=== PATIENT | female | born 1995 | race Caucasian/White ===

== ENCOUNTER 2019-06-20 12:19 | Outpatient (CLI) | payer MEDICAID ==
--- NOTE | 2019-06-20 12:19 | NUR ---
ANTONETTE ROSE presented to unit via ambulation from Dr. Patel , with c/o FALL. ANTONETTE ROSE weighed, gowned, voided, and to bed. EFHM and TOCO applied, VS taken. ANTONETTE ROSE oriented to bed controls, call light, TV, heat, and A/C controls.
[2019-06-20 13:00] VITALS: BP 111/69
--- NOTE | 2019-06-20 14:29 | NUR ---
Dr. Sanders contacted d/t pt requesting to eat. Regular diet order rec'd. [place] tray and saltine crackers provided to pt.
--- NOTE | 2019-06-20 16:35 | NUR ---
Dr. Sanders contacted and notified of R, ctx pattern ( sent pt to hospital from office so already knows history of fall). also notified pt c/o feeling "wet down there". Nitrazine performed per this RN and found to be negative. Discharge orders rec'd.
--- NOTE | 2019-06-20 16:50 | NUR ---
Discharge instructions given to pt per Iesha Jasmine RN and copy provided to pt. Pt denies questions or concerns and signs to verify. Pt ambulates off unit to private vehicle with all personal belongings. No s/s of distress noted.
--- NOTE | 2019-06-21 08:30 | Physician Query-Final Dx ---
MILADYS ROSA 06/21/19 0830: Clinic Account Progress/Dx Physician Query: Please give diagnosis Please include # weeks gestation Date of Service Jun 20, 2019 at 12:19 SONIA BLEVINS MD 06/22/19 1107: Clinic Account Progress/Dx DIAGNOSIS: Diagnosis 33 weeks gestation Fall, normal and uterine activity monitoring MILADYS ROSA Jun 21, 2019 08:30 SONIA BLEVINS MD Jun 22, 2019 11:07
== END 2019-06-20 16:50 | disposition home or self-care (01) ==
LOC: WSo 12:19 → LDRP 12:45 → WSo 16:50
PROVIDERS: ATTEND Family Medicine
DX: Z34.83 Encounter for supervision of other normal pregnancy, third trimester (principal); W19.XXXA Unspecified fall, initial encounter; Z3A.33 33 weeks gestation of pregnancy
CPT/HCPCS: 59025

== ENCOUNTER 2019-06-29 12:38 | Outpatient (CLI) | payer MEDICAID ==
[~2019-06-29] VITALS: Ht 170 cm; Wt 81.3 kg
--- NOTE | 2019-06-29 12:50 | NUR ---
ANTONETTE ROSE presented to unit via from ED, accompanied by self , with c/o CONTRACTIONS. ANTONETTE ROSE weighed, gowned, voided, and to bed. EFHM and TOCO applied, VS taken. ANTONETTE ROSE oriented to bed controls, call light, TV, heat, and A/C controls.
[2019-06-29 13:08] LABS: BILIRUBIN,URINE NEGATIVE (NEGATIVE); CLARITY,URINE CLEAR; COLOR,URINE YELLOW; GLUCOSE, URINE (UA) NEGATIVE (NEGATIVE); KETONES,URINE NEGATIVE (NEGATIVE); LEUKOCYTE ESTERASE ,URINE TRACE (NEGATIVE); NITRITE,URINE NEGATIVE (NEGATIVE); PH,URINE 7.5 (5-9); PROTEIN,URINE NEGATIVE (NEGATIVE)
[2019-06-29 13:16] LABS: BACTERIA,URINE FEW /HPF; WBC,URINE RARE /HPF
[2019-06-29 13:50] VITALS: BP 109/67
--- NOTE | 2019-06-29 14:10 | NUR ---
Rates pain 10 and wants to eat and drink. States she was in [place] yesterday with same complaints of contractions and legs hurting. No dilated yesterday. 1430 After eating pt states she better and wanting when she can go home. States boyfriend is in [place], [place] and he will come to get her but [place] has a curfew of 4pm. No one in or out of city due to Covid 19. Gave Vistaril and Tylenol as ordered. Will follow up with routine appointment either tomorrow or the . Having uterine irritability. FHR 130's with frequent movement and pt movement.
[2019-06-29] MEDS ORDERED: hydrOXYzine (VISTARIL/ATARAX) 25 MG capsule/tablet PO NR (14:30)
[2019-06-29] MEDS ORDERED: ACETAMINOPHEN 325 MG TABLET ONE (14:30)
[2019-06-29] MEDS ORDERED: ACETAMINOPHEN 325 MG TABLET PO NR (14:30)
[2019-06-29] MEDS ORDERED: CARI1.5C PO (14:57)
--- NOTE | 2019-06-29 15:00 | NUR ---
Dismiss to home. Ambulated to exit.
--- NOTE | 2019-06-30 08:44 | Physician Query-Final Dx ---
Clinic Account Progress/Dx Physician Query: Please give diagnosis Please include # weeks gestation Date of Service Jun 29, 2019 at 12:38 MILADYS ROSA Jun 30, 2019 08:44
== END 2019-06-29 15:30 ==
LOC: WSo 12:38 → LDRP 12:39 → WSo 15:30
PROVIDERS: ATTEND Family Medicine
DX: O62.9 Abnormality of forces of labor, unspecified (principal); Z3A.35 35 weeks gestation of pregnancy
CPT/HCPCS: 81000; 99213

== ENCOUNTER 2019-07-24 22:21 | Inpatient (IN) | payer MEDICAID ==
[~2019-07-24] VITALS: Ht 170.2 cm; Wt 82.1 kg
[~2019-07-24 22:21] MED LIST: CARI1.5C PO
--- NOTE | 2019-07-24 22:25 | NUR ---
ANTONETTE ROSE presented to unit via w/c from home/ED, accompanied by SO, with c/o LABOR, SROM. ANTONETTE ROSE weighed, gowned, voided, and to bed. EFHM and TOCO applied, VS taken. ANTONETTE ROSE oriented to bed controls, call light, TV, heat, and A/C controls.
[2019-07-24 22:37] VITALS: BP 127/86
[2019-07-24] MEDS ORDERED: LACTATED RINGERS 1,000 ML IV ONE (22:40)
[2019-07-24 22:45] VITALS: BP 127/86
[2019-07-24] MEDS ORDERED: CITRIC ACID/SOB CIT (BICITRA) 30 ML UDC ONE (22:50)
[2019-07-24] MEDS ORDERED: METOCLOPRAMIDE INJ 10 MG/2 ML (REGLAN) ONE (22:50)
[2019-07-24] MEDS ORDERED: FAMOTIDINE 20MG/2ML IV (PEPCID) ONE (22:51)
[2019-07-24] MEDS ORDERED: LACTATED RINGERS 1,000 ML IV PRN (22:58)
[2019-07-24] MEDS ORDERED: METOCLOPRAMIDE INJ 10 MG/2 ML (REGLAN) IV ONE (23:00)
[2019-07-24] MEDS ORDERED: FAMOTIDINE 20MG/2ML IV (PEPCID) IV ONE (23:00)
[2019-07-24] MEDS ORDERED: CITRIC ACID/SOB CIT (BICITRA) 30 ML UDC PO ONE (23:00)
[2019-07-24] MEDS: LACTATED RINGERS 1,000 ML IV PRN ×2 (23:04→23:52)
[2019-07-24 23:08] LABS: BASOPHILS % (AUTO) 0 % (0-10); EOSINOPHILS % (AUTO) 1 % (0-10); HEMATOCRIT 33 % (35-52); HEMOGLOBIN 10.7 G/DL (11.5-16.0); LYMPHOCYTES # (AUTO) 1.9 X 10^3 (1.0-4.0); LYMPHOCYTES % (AUTO) 27 % (12-44); MEAN CORPUSCULAR HEMOGLOBIN 28 PG (25-34); MEAN CORPUSCULAR HGB CONC 32 G/DL (32-36); MEAN CORPUSCULAR VOLUME 86 FL (80-99); MEAN PLATELET VOLUME 9.6 FL (7.4-10.4); MONOCYTES # (AUTO) 0.7 X 10^3 (0.0-1.0); MONOCYTES % (AUTO) 10 % (0-12); NEUTROPHILS # (AUTO) 4.6 X 10^3 (1.8-7.8); NEUTROPHILS % (AUTO) 63 % (42-75); PLATELET COUNT 275 10^3/uL (130-400); RED CELL DISTRIBUTION WIDTH 14.1 % (10.0-14.5); WHITE BLOOD COUNT 7.2 10^3/uL (4.3-11.0)
[2019-07-24] MEDS ORDERED: ceFAZolin 2 GM IV Premixed 50 ML ONE (23:16)
--- NOTE | 2019-07-24 23:18 | Progress Note-Pre Operative ---
Pre-Operative Progress Note H&P Reviewed The H&P was reviewed, patient examined and no changes noted. I was called to see Ms. Rodriguez secondary to having SROM at 38 3/7 weeks with an active HSV lesion in her vaginal area. This was discussed with Ms. Espinoza and her significant other about proceeding with an immediate . The procedure and its associated risks were discussed. All questions were answered. Informed consent was obtained. Date Seen by Provider: Jul 24, 2019 Time Seen by Provider: 23:00 Date H&P Reviewed: Jul 24, 2019 Time H&P Reviewed: 23:05 Pre-Operative Diagnosis: Intrauterine at 38 3/7 weeks 2. SROM 3. Active HSV (vulvar) AUBREY HAGAN DO Jul 24, 2019 23:18
[2019-07-24] MEDS ORDERED: OXYTOCIN PRE-MIX DRIP 1,000 ML IV ONE (23:27)
[2019-07-24] MEDS ORDERED: fentaNYL INJECTION 100 MCG/2 ML AMP ONE (23:28)
[2019-07-24] MEDS ORDERED: ceFAZolin 2 GM IV Premixed 50 ML IV ONE (23:30)
[2019-07-24] MEDS ORDERED: ACYC400T (23:31)
--- NOTE | 2019-07-24 23:31 | History & Physical-OB ---
OB - Chief Complaint & HPI Date/Time Date of Admission: Date of Admission: Date seen by a Provider: Jul 24, 2019 Time Seen by a Provider: 23:15 Chief Complaint/History OB-Reason for Admission/Chief: Rupture of Membranes Hx : 3 Hx Para: 2 Expected Date of Delivery: Aug 04, 2019 Gestational Age in Weeks: 38 Gestational Age in Days: 3 Indication for : other (active herpes lesion) History of Labs A neg, antibody neg, RI. HIV/HepB/RPR NR. GC/chlamydia neg. 1 hour glucola neg. GBS neg. Allergies and Home Medications Allergies Coded Allergies: No Known Drug Allergies (Unverified , 06/20/19) Home Medications Cariprazine Hydrochloride 1.5 Mg Capsule, 1.5 MG PO DAILY, (Reported) Patient Home Medication List Home Medication List Reviewed: Yes (Has not been taking acyclovir regularly) OB - History Hx of Present Care: Yes Ultrasounds: Normal mid trimester US Obstetrical Complications: None Medical Complications: Genitourinary (History of herpes), Psychiatric (schizophrenia, on Vraylar) Information Induced Hypertension: No Maternal Gestational Diabetes: No Hemorrhage: No Obstetrical History Hx : 3 Hx Para: 2 Hx # Term Pregnancies: 2 Hx # Pregnancies: 0 Number of Living Children: 2 Hx Termination: No Hx Multiple Gestation: No Hx Ectopic : No Hx Stillbirth: No Hx Complication: No Hx Induced Hypertens: No Hx Maternal Gestational Diabet: No Hx Hemorrhage: No Delivery History Hx Dystocia: No Hx Forceps Assisted Delivery: No Hx Vacuum Extraction Assisted: No Hx Placenta Abnormality: No Hx Distress: No Hx Large For Gestational Age I: No Hx Small for Gestational Age I: No Hx Section: No Hx Vaginal Delivery Post C-Sec: No Hx Blood Disorders: No Adverse Rxn to Tranfusion: No Patient Past Medical History PMHx: Schizophrenia Cerebral palsy Depression Genital herpes SurgHx: Left finger Social History/Family History HIV/AIDS: No Recent Infectious Disease Expo: No Sexually Transmitted Disease: Yes (HSV) Alcohol Use: Denies Use Recreational Drug Use: No Smoking Cessation: Never smoker 2nd Hand Smoke Exposure: No Immunizations Tetanus Booster (TDap): Less than 5yrs Rubella: immune RPR/VDRL: Negative GBS Status: Negative HBsAG: Negative OB - Admission Exam Physical Exam HEENT: NCAT Abdomen: Gravid Cervical Dilatation: 2cm (per nurse exam. I confirmed finding of blister-like HSV lesion at anterior labia on the left) Labs Laboratory Tests Test 07/24/19 23:00 Range/Units White Blood Count 7.2 4.3-11.0 10^3/uL Red Blood Count 3.84 L 4.35-5.85 10^6/uL Hemoglobin 10.7 L 11.5-16.0 G/DL Hematocrit 33 L 35-52 % Mean Corpuscular Volume 86 80-99 FL Mean Corpuscular Hemoglobin 28 25-34 PG Mean Corpuscular Hemoglobin Concent 32 32-36 G/DL Red Cell Distribution Width 14.1 10.0-14.5 % Platelet Count 275 130-400 10^3/uL Mean Platelet Volume 9.6 7.4-10.4 FL Neutrophils (%) (Auto) 63 42-75 % Lymphocytes (%) (Auto) 27 12-44 % Monocytes (%) (Auto) 10 0-12 % Eosinophils (%) (Auto) 1 0-10 % Basophils (%) (Auto) 0 0-10 % Neutrophils # (Auto) 4.6 1.8-7.8 X 10^3 Lymphocytes # (Auto) 1.9 1.0-4.0 X 10^3 Monocytes # (Auto) 0.7 0.0-1.0 X 10^3 Eosinophils # (Auto) 0.0 0.0-0.3 10^3/uL Basophils # (Auto) 0.0 0.0-0.1 10^3/uL OB - Assessment/Plan/Diagnosis Assessment Assessment: rupture of membranes, other (Active herpes lesion) Admission Dx Term at 38 weeks Spontaneous rupture of membranes Genital herpes lesion A negative blood type Rubella immune GBS neg. Admission Status: Inpatient Order (span 2 midnights) Reason for Inpatient Admission: Delivery and course Plan Plan: Section SONIA BLEVINS MD Jul 24, 2019 23:31
--- OUTSIDE RECORDS SUMMARY | 2019-07-24 23:31 | XMS REPORT ---
Author Author Alla BLANDON Organization [facility] Address [address] [place] [address] Care Team Providers Care Meat Carver Name Role Phone SUZETTE BLANDON Unavailable PROBLEMS Type Condition ICD9-CM Code [id number] Code Onset Dates Condition S tatus SNOMED Code Problem Mild intellectual disability F70 A ctive [id number] Problem Schizoaffective disorder, unspecified type F25.9 Active [id number] ALLERGIES No Information ENCOUNTERS Encounter Location Date Diagnosis [facility] [address] [facility] [id number] [address] [place] [phone] Dec, [facility] [address] [facility] [id number] [address] [place] [phone] Oct, [facility] [address] [facility] [id number] [address] [place] [phone] Oct, Schizoaffective disorder, un specified type F25.9 and Mild intellectual disability F70 [facility] [address] [facility] [id number] [address] [place] [phone] 10 Aug, 2017 Schizoaffective disorder, un specified type F25.9 IMMUNIZATIONS No Known Immunizations SOCIAL HISTORY Never Assessed REASON FOR VISIT intake PLAN OF CARE Activity Details Follow Up Scheduled with Dr. Barr. Reason: VITAL SIGNS MEDICATIONS Unknown Medications RESULTS No Results PROCEDURES Procedure Date Ordered Result Body Site Psych diagnostic evaluation, new patient August 19, 2017 INSTRUCTIONS MEDICATIONS ADMINISTERED No Known Medications MEDICAL (GENERAL) HISTORY Type Description Date Medical History cerebral palsy Surgical History Left finger when she was 8 Hospitalization History [place] x 1 week 04/2017
--- OUTSIDE RECORDS SUMMARY | 2019-07-24 23:31 | XMS REPORT ---
Author Author Alla JACKSON Organization [facility] Address [address] [place] [address] Care Team Providers Care Display Fabricator Name Role Phone OJ JACKSON Unavailable PROBLEMS Type Condition ICD9-CM Code [id number] Code Onset Dates Condition S tatus SNOMED Code Problem Mild intellectual disability F70 A ctive [id number] Problem Schizoaffective disorder, unspecified type F25.9 Active [id number] ALLERGIES No Information ENCOUNTERS Encounter Location Date Diagnosis [facility] [address] [facility] [id number] [address] [place] [phone] Dec, [facility] [address] [facility] [id number] [address] [place] [phone] Oct, [facility] [address] [facility] [id number] [address] [place] [phone] Oct, Schizoaffective disorder, un specified type F25.9 and Mild intellectual disability F70 [facility] [address] [facility] [id number] [address] [place] [phone] August, Schizoaffective disorder, un specified type F25.9 IMMUNIZATIONS No Known Immunizations SOCIAL HISTORY Never Assessed REASON FOR VISIT Requests return call PLAN OF CARE VITAL SIGNS MEDICATIONS Unknown Medications RESULTS No Results PROCEDURES No Known procedures INSTRUCTIONS MEDICATIONS ADMINISTERED No Known Medications MEDICAL (GENERAL) HISTORY Type Description Date Medical History cerebral palsy Surgical History Left finger when she was 8 Hospitalization History [place] x 1 week 04/2017
--- OUTSIDE RECORDS SUMMARY | 2019-07-24 23:31 | XMS REPORT | Continuity of Care Document ---
Author Organization Unknown Address Unknown Phone Unavailable Allergies Active Description Code Type Severity Reaction Onset Reported/Identified Relationship to Patient Clinical Status Yes No Known Drug Allergies [id number] Drug Allergy Unknown N/A 06/20/2019 Medications There is no data. Problems Date Dx Coded Attending Type Code Diagnosis Diagnosed By 06/23/2019 KAMERON LYLE DO, Ot W19.XX XA UNSPECIFIED FALL, INITIAL ENCOUNTER 06/23/2019 KAMERON LYLE DO, Ot Z34.83 ENCOUNTER FOR SUPRVSN OF NORMAL PREGNANC 06/23/2019 KAMERON LYLE DO, Ot Z3A.33 33 WEEKS GESTATION OF 06/29/2019 FRANCISCA CHRISTIAN MD Ot O62.9 ABNORMALITY OF FORCES OF LABOR, UNSPECIF 06/29/2019 FRANCISCA CHRISTIAN MD Ot Z3A.3 5 35 WEEKS GESTATION OF 07/05/2019 FRANCISCA CHRISTIAN MD Ot O62.9 ABNORMALITY OF FORCES OF LABOR, UNSPECIF 07/05/2019 FRANCISCA CHRISTIAN MD Ot Z3A.3 5 35 WEEKS GESTATION OF 07/05/2019 FRANCISCA CHRISTIAN MD Ot O62.9 ABNORMALITY OF FORCES OF LABOR, UNSPECIF 07/05/2019 FRANCISCA CHRISTIAN MD Ot Z3A.3 5 35 WEEKS GESTATION OF Procedures There is no data. Results Test Result Range SUREPATH PAP RFX HPV mRNA E6/E7 - 17:40 CLINICAL INFORMATION: NRG LMP: OCTOBER 2018 NRG PREV. PAP: NORMAL NRG PREV. BX: NRG SOURCE: Cervix NRG STATEMENT OF ADEQUACY: NRG INTERPRETATION/RESULT: NRG SEPARATOR OPERATOR: NRG REVIEW SEPARATOR OPERATOR: NRG COMMENT NRG CULTURE, GENITAL - 01/11/19 17:41 CULTURE, GENITAL SEE NOTE NRG CMP - 03/24/19 10:23 GLUCOSE 75 mg/dL 65-99 UREA NITROGEN (BUN) 9 mg/dL 7-25 CREATININE 0.53 mg/dL 0.50-1.10 eGFR NON-AFR. CAMBODIAN 134 mL/min/1.73m2 > OR = 60 eGFR 155 mL/min/1.73m2 > OR = 60 BUN/CREATININE RATIO NOT APPLICABLE (calc) 6-22 SODIUM 140 mmol/L 135-146 POTASSIUM 5.2 mmol/L 3.5-5.3 CHLORIDE 107 mmol/L 98-110 CARBON DIOXIDE 27 mmol/L 20-32 CALCIUM 9.4 mg/dL 8.6-10.2 PROTEIN, TOTAL 6.2 g/dL 6.1-8.1 ALBUMIN 3.6 g/dL 3.6-5.1 GLOBULIN 2.6 g/dL (calc) 1.9-3.7 ALBUMIN/GLOBULIN RATIO 1.4 (calc) 1.0-2. 5 BILIRUBIN, TOTAL 0.3 mg/dL 0.2-1.2 ALKALINE PHOSPHATASE 53 U/L 33-115 AST 17 U/L 10-30 ALT 24 U/L 6-29 SYPHILIS (RPR W/ REFLEX CONFIRMATION) - 05/10/19 14:41 RPR (DX) W/REFL TITER AND CONFIRMATORY TESTING NON-REACTIVE NON-REACTIVE Complete urinalysis with reflex to cultu re - 06/29/19 12:50 Urine color determination YELLOW NRG Urine clarity determination CLEAR NR G Urine pH measurement by test strip 7.5 5-9 Specific gravity of urine by test strip 1.015 1.016-1.022 Urine protein assay by test strip, semi-quantitative NEGATIVE NEGATIVE Urine glucose detection by automated test strip NE GATIVE NEGATIVE Erythrocytes detection in urine sediment by light micr oscopy 2+ NEGATIVE Urine ketones detection by automated test strip NE GATIVE NEGATIVE Urine nitrite detection by test strip NEGATIVE NEGATIVE Urine total bilirubin detection by test strip NEGA TIVE NEGATIVE Urine urobilinogen measurement by automated test strip (mass/volume) 1.0 mg/dL < = 1.0 Urine leukocyte esterase detection by dipstick TRA CE NEGATIVE Automated urine sediment erythrocyte cou nt by microscopy (number/high power field) [HPF] NRG Automated urine sediment leukocyte count by microscopy (number/high power field) RARE NRG Bacteria detection in urine sediment by light microsco py FEW NRG Squamous epithelial cells detection in u rine sediment by light microscopy 5-10 NRG Crystals detection in urine sediment by light microsco py NONE NRG Casts detection in urine sediment by light microscopy NONE NRG Mucus detection in urine sediment by light microscopy SMALL NRG Complete urinalysis with reflex to culture NO NRG CULTURE, URINE - 06/30/19 15:17 CULTURE, URINE, ROUTINE SEE NOTE NRG CULTURE, GROUP B STREP (VAGINAL) - 07/11 15:20 STREPTOCOCCUS, GROUP B CULTURE SEE NOTE NRG Complete blood count (CBC) with automate d white blood cell (WBC) differential - 07/24/19 23:00 Blood leukocytes automated count (number/volume) 7.2 10*3/uL 4.3-11.0 Blood erythrocytes automated count (number/volume) 3.84 10*6/uL 4.35-5.85 Venous blood hemoglobin measurement (mass/volume) 10.7 g/dL 11.5-16.0 Blood hematocrit (volume fraction) 33 % 35-52 Automated erythrocyte mean corpuscular volume 86 [ foz_us] 80-99 Automated erythrocyte mean corpuscular h emoglobin (mass per erythrocyte) 28 pg 25-34 Automated erythrocyte mean corpuscular h emoglobin concentration measurement (mass/volume) 32 g/dL 32-36 Automated erythrocyte distribution width ratio 14. 1 % 10.0- 14.5 Automated blood platelet count (count/volume) 275 10*3/uL 130-400 Automated blood platelet mean volume measurement 9.6 [foz_us] 7.4-10.4 Automated blood neutrophils/100 leukocytes 63 % 42-75 Automated blood lymphocytes/100 leukocytes 27 % 12-44 Blood monocytes/100 leukocytes 10 % 0-12 Automated blood eosinophils/100 leukocytes 1 % 0-10 Automated blood basophils/100 leukocytes 0 % 0-10 Blood neutrophils automated count (number/volume) 4.6 10*3 1.8-7.8 Blood lymphocytes automated count (number/volume) 1.9 10*3 1.0-4.0 Blood monocytes automated count (number/volume) 0. 7 10*3 0.0-1.0 Automated eosinophil count 0.0 10*3/uL 0 .0-0.3 Automated blood basophil count (count/volume) 0.0 10*3/uL 0.0-0.1 Encounters ACCT No. Visit Date/Time Discharge Status Pt. Type Provider Facility Loc./Unit Complaint [id number] 2019 16:00:00 2019 23:59: 59 CLS Outpatient FELICITY LINDA[facility] [place] [id number] 07/12/2019 13:20:00 Document Registration [id number] 06/30/2019 14:40:00 Document Registration [id number] 05/10/2019 14:00:00 Document Registration [id number] 03/24/2019 10:20:00 Document Registration [id number] 01/11/2019 14:15:00 Document Registration [id number] 03/22/2019 13:21:00 ACT Unknown [id number] 06/29/2019 12:38:00 15:30:00 DIS Outpatient GINO LINDA, [facility] CONTR[facility] [id number] 06/20/2019 12:19:00 16:50:00 DIS Outpatient [facility] [id number] 07/24/2019 23:12:00 Document Registration
--- OUTSIDE RECORDS SUMMARY | 2019-07-24 23:31 | XMS REPORT ---
Author Author Alla JACKSON Organization [facility] Address [address] [place] [address] Care Team Providers Care Taco Maker Name Role Phone OJ JACKSON Unavailable PROBLEMS Type Condition ICD9-CM Code [id number] Code Onset Dates Condition S tatus SNOMED Code Problem Mild intellectual disability F70 A ctive [id number] Problem Schizoaffective disorder, unspecified type F25.9 Active [id number] ALLERGIES No Known Allergies ENCOUNTERS Encounter Location Date Diagnosis [facility] [address] [facility] [id number] [address] [place] [phone] Dec, [facility] [address] [facility] [id number] [address] [place] [phone] Oct, [facility] [address] [facility] [id number] [address] [place] [phone] Oct, Schizoaffective disorder, un specified type F25.9 and Mild intellectual disability F70 [facility] [address] [facility] [id number] [address] [place] [phone] August, Schizoaffective disorder, un specified type F25.9 IMMUNIZATIONS No Known Immunizations SOCIAL HISTORY Never Assessed REASON FOR VISIT charlie Nowak MA PLAN OF CARE Activity Details Follow Up prn Reason: f/u VITAL SIGNS Height 57 in 2017-10-11 Weight 143.4 lbs 2017-10-11 Heart Rate 72 bpm 2017-10-11 Respiratory Rate 20 2017-10-11 Oximetry on room air:99 % 2017-10-11 BMI 31.03 kg/m2 2017-10-11 Blood pressure systolic 118 mmHg 2017-10-11 Blood pressure diastolic 72 mmHg 2017-10-11 MEDICATIONS Medication Instructions Dosage Frequency Start Date End Date Duration S tatus Vraylar 3 MG Orally Once a day 1 capsule 24h 30 days Active RESULTS No Results PROCEDURES No Known procedures INSTRUCTIONS MEDICATIONS ADMINISTERED No Known Medications MEDICAL (GENERAL) HISTORY Type Description Date Medical History cerebral palsy Surgical History Left finger when she was 8 Hospitalization History [place] x 1 week 04/2017
[2019-07-24] MEDS ORDERED: DEXAMETHASONE 10 MG/ML (DECADRON) 1 ML VIAL ONE (23:54)
[2019-07-24] MEDS ORDERED: ONDANSETRON 4 MG/2 ML (SDV) Z0FRAN ONE (23:54)
[2019-07-24] MEDS ORDERED: BUPIVACAINE 0.5% 30 ML (SENSORCAINE) VIAL ONE (23:54)
[2019-07-25] VITALS (13 sets, daily range): BP systolic 96–111; BP diastolic 51–76
[2019-07-25] MEDS ORDERED: PHENYLEPHRINE 100 MCG/ML 10 ML (ANESTHESIA) SYR ONE (00:01)
[2019-07-25] MEDS ORDERED: OXYTOCIN PRE-MIX DRIP 500 ML IV SCH (00:27)
[2019-07-25] MEDS ORDERED: TETANUS,DIPTH,PERTUSS P/F (BOOSTRIX) 0.5 ML VIAL IM SCH (00:30)
[2019-07-25] MEDS ORDERED: fentaNYL INJECTION 100 MCG/2 ML AMP IVP PRN (00:30)
[2019-07-25] MEDS ORDERED: MEASLES,MUMPS,RUBELLA 1 EA INJ SC SCH (00:30)
--- NOTE | 2019-07-25 00:42 | Cesarean Section Operative ---
Procedure Procedure Note Pre-operative Diagnosis: Alla Alfonso is a (24 /Para 3 / 2, Gestational Age (wks)38 3/7 weeks with [active HSV 2 and SROM] 3. Schizophrenia 4. Depression 5. Cerebral Palsy Post-operative Diagnosis: same [] Procedure: [Primary] low transverse section Physician: AUBREY HAGAN [id number] Developer: [] Estimated blood loss: [400] mL Disposition: [Good to Recovery Room] Findings: Viable [Female] , Apgars [8, 9], weight [6 lb 14 oz], intact placenta, 3vc, normal appearing uterus, tubes, and ovaries. Indications:Alla Alfonso is nestor (24 /Para 3 / 2,Gestational Age (wks)38 3/7 presenting with [SROM and active HSV 2 lesions]. Procedure Details: The patient was seen in pre-op and the procedure was discussed with the patient in full, including the risks, benefits, and alternatives. All questions were answered. The patient was taken to the operating room and a time out was per formed, verifying patient and procedure. After spinal anesthesia was placed by our anesthesia colleagues, the patient was placed in the dorsal supine with leftward tilt for uterine displacement.~ Her abdomen was then prepped and draped in the typical sterile fashion. A Pfannenstiel skin incision was made using a scalpel and carried down through the underlying fascia. The fascia was incised in the midline and tented up using Quentin clamps. On both the inferior and superior fascia side the rectus muscle was dissected off bluntly and sharply using Amador scissors. The peritoneum was identified and entered bluntly in the midline. This was then stretched laterally using manual strength. After entering the abdominal cavity and confirming lack of intraperitoneal adhesions, a large Raul retractor was placed and the lower uterine segment was visualized. A bladder flap was created with the use of Metzenbaum scissors.~ A scalpel was utilized to make a low transverse uterine incision. Amniotomy was unnecessary as she ruptured her membranes prior to arriving at the hospital. The 's head was grasped and brought to the level of the incision. Fundal pressure was applied and infant was delivered without difficulty. Mouth and nares were suctioned with bulb suction. After the umbilical cord was clamped and cut, the was handed off to the pediatric staff. A sample of cord blood was then obtained. The placenta was delivered intact via uterine massage. The uterus was exteriorized and cleared of all clots and debris. The uterine incision was closed using 0 Vicryl in a running locked fashion. A second imbricated layer was placed using 0 Vicryl in a running fashion as well. The vesicouterine peritoneum was approximated with 3-0 Vicryl in a running fashion. The uterus was flexed forward and the posterior rectouterine space was inspected and cleared of all clots and debris. Again the hysterotomy site was examined and hemostasis was observed. The bilateral tubes and ovaries appeared normal. The uterus was placed back into the abdominal cavity and abdominal gutters were cleared of all clots and debris. A final check of the uterine incision showed it to be hemostatic. The peritoneum was closed using 3-0 Vicryl in a running fashion. The fascia was closed with 0 Vicryl in a running fashion. The subcutaneous space was hemostatic, and irrigated. The subcutaneous space was closed with 3-0 Plain Gut in running fashion. The skin was then closed using 4-0 Monocryl in a running subcuticular fashion. The skin edges were reapproximated together and were hemostatic. A pressure dressing was applied. All sponge, lap and needle counts were correct at the end of the procedure per nursing. Vitals - Labs Vital Signs - I&O Vital Signs Date Time Temp Pulse Resp B/P (MAP) Pulse Ox O2 Delivery O2 Flow Rate FiO2 07/24/19 22:45 36.8 91 18 100 Room Air 07/24/19 22:37 36.8 91 18 100 Room Air I & O 07/25/19 07:00 Intake Total 1050 ml Balance 1050 ml Labs Laboratory Tests 07/24/19 23:00: White Blood Count 7.2, Red Blood Count 3.84L, Hemoglobin 10.7L, Hematocrit 33L, Mean Corpuscular Volume 86, Mean Corpuscular Hemoglobin 28, Mean Corpuscular Hemoglobin Concent 32, Red Cell Distribution Width 14.1, Platelet Count 275, Mean Platelet Volume 9.6, Neutrophils (%) (Auto) 63, Lymphocytes (%) (Auto) 27, Monocytes (%) (Auto) 10, Eosinophils (%) (Auto) 1, Basophils (%) (Auto) 0, Neutrophils # (Auto) 4.6, Lymphocytes # (Auto) 1.9, Monocytes # (Auto) 0.7, Eosinophils # (Auto) 0.0, Basophils # (Auto) 0.0 AUBREY HAGAN DO Jul 25, 2019 00:42
--- NOTE | 2019-07-25 01:35 | NUR ---
Pt to 313 via bed from recovery. Report received. pt denies any pain. moving extremities well. nb handed to mother. teaching performed. call light within reach. pt denies any concerns will continue to monitor.
[2019-07-25] MEDS: KETOROLAC 30 MG/ML VIAL IV SCH ×4 (01:58→18:45)
--- NOTE | 2019-07-25 02:21 | NUR ---
ff 1 below. moderate rubra. pad changed. kai love'rajan. pt tolerated well. will continue to monitor.
[2019-07-25] MEDS ORDERED: D5 LR IV SOLUTION 1,000 ML IV ONE (03:41)
[2019-07-25] MEDS ORDERED: BISACODYL 10 MG SUPP (DULCOLAX) PR ONE (06:00)
[2019-07-25] MEDS ORDERED: MILK OF MAGNESIA 400 MG/5 ML 30 ML UDC PO ONE (06:00)
[2019-07-25] MEDS ORDERED: CATHETER FLUSH 10 ML SYR IV SCH (06:00)
[2019-07-25] MEDS: METOCLOPRAMIDE 10 MG (REGLAN) TAB PO SCH ×3 (06:26→18:01)
[2019-07-25] MEDS: ACETAMINOPHEN 500 MG TAB (TYLENOL) PO SCH ×3 (06:26→18:01)
--- NOTE | 2019-07-25 06:44 | Progress Note ---
Standard Progress Note Progress Notes/Assess & Plan Date Seen by a Provider: Jul 25, 2019 Time Seen by a Provider: 06:45 Progress/Assessment & Plan Subjective: Ms. Rodriguez is POD#0 from a Primary Low Transverse . She admits to some mild soreness, but no other complaints. States that her bleeding has slowed considerably. Objective: Vital signs are stable Heart: Regular rate and rhythm without appreciable murmur Lungs: Clear to auscultation bilaterally with good respiratory effort Abdomen: Bowel sounds present, no rebound or guarding, bandage on incision Extremities: No cyanosis or clubbing, trace edema of lower extremities Assessment: POD#0 Primary Low Transverse 2. HSV 2 3. Schizophrenia 4. Depression Plan: Restart her Vraylar. Valtrex for HSV. Pain management and comfort measures. Increase bowel function, then advance to a Regular Diet. Ambulate and shower. AUBREY HAGAN DO Jul 25, 2019 06:44
--- NOTE | 2019-07-25 06:49 | NUR ---
pt up to the bathroom. positive void. +bm. pt denies any needs, assisted back to bed. will continue to monitor.
--- NOTE | 2019-07-25 07:52 | Anesthesia-Regional Post-Op ---
Regional Patient Condition Mental Status: Alert, Oriented x3 Circulation: Same as Pre-Op Headache: Absent Sensation: Full Recovery Motor Block: Absent Post Op Complications Complications None Follow Up Care/Instructions Patient Instructions None needed. Anesthesia/Patient Condition Patient is doing well, no complaints, stable vital signs, no apparent adverse anesthesia problems. No complications reported per nursing. NU SPEARS CRNA Jul 25, 2019 07:52
[2019-07-25] MEDS: DOCUSATE SODIUM 100 MG (COLACE) CAP PO SCH ×2 (08:58→21:38)
[2019-07-25] MEDS: VALACYCLOVIR 500 MG TAB (VALTREX) PO SCH ×2 (08:59→21:38)
--- NOTE | 2019-07-25 13:12 | NUR ---
CM/SS: Visited with pt as to plan for discharge, mental health services, and services for baby as per consult. Plan: Pt will return home with her boyfriend and her two other children Summary: Pt reports feeling ok today. Pt shares that this is her third child, with other children are ages 1 and three. Pt reports her mood is ok today, however she has had depression in the past. Pt is educated on post depression and the need to follow up with her mental health, as well as appointments for baby. Pt agrees. Pt also reports that she has WIC currently and she has had [facility]. She is open to having this worker make a referral for [facility] for. She also has had [facility] she is open to this as well. Pt is on disability due to having cerebral palsy and reports her boyfriend is on it as well. Pt is open to share and seems to be cooperative at this time. Pt thanks this worker for visiting and expresses appreciation for the information received.
[2019-07-25] MEDS ORDERED: ZOLPIDEM 5 MG (AMBIEN) TAB PO SCH (21:00)
[2019-07-26] VITALS: BP 117/70
[2019-07-26] MEDS: METOCLOPRAMIDE 10 MG (REGLAN) TAB PO SCH ×2 (00:30→06:10)
[2019-07-26] MEDS: ACETAMINOPHEN 500 MG TAB (TYLENOL) PO SCH ×2 (00:31→08:46)
[2019-07-26] MEDS ORDERED: IBUPROFEN 600 MG (MOTRIN) TAB PO ONE (02:14)
[2019-07-26] MEDS ORDERED: IBUPROFEN 800 MG (MOTRIN) TAB PO ONE (02:17)
[2019-07-26 04:00] VITALS: BP 111/67
[2019-07-26 05:30] LABS: BASOPHILS % (AUTO) 0 % (0-10); EOSINOPHILS % (AUTO) 0 % (0-10); HEMATOCRIT 28 % (35-52); HEMOGLOBIN 8.9 G/DL (11.5-16.0); LYMPHOCYTES % (AUTO) 21 % (12-44); MEAN CORPUSCULAR HEMOGLOBIN 28 PG (25-34); MEAN CORPUSCULAR HGB CONC 32 G/DL (32-36); MEAN CORPUSCULAR VOLUME 87 FL (80-99); MEAN PLATELET VOLUME 9.5 FL (7.4-10.4); MONOCYTES % (AUTO) 10 % (0-12); NEUTROPHILS # (AUTO) 6.6 X 10^3 (1.8-7.8); NEUTROPHILS % (AUTO) 68 % (42-75); PLATELET COUNT 215 10^3/uL (130-400); RED CELL DISTRIBUTION WIDTH 14.3 % (10.0-14.5); WHITE BLOOD COUNT 9.6 10^3/uL (4.3-11.0)
[2019-07-26] MEDS ORDERED: IBUPROFEN 800 MG (MOTRIN) TAB PO SCH (06:30)
[2019-07-26 08:35] VITALS: BP 111/68
--- NOTE | 2019-07-26 08:35 | NUR ---
SCD's off for out of bed activity. Baby at bedside. No one visiting.
[2019-07-26] MEDS: DOCUSATE SODIUM 100 MG (COLACE) CAP PO SCH (08:46)
[2019-07-26] MEDS: VALACYCLOVIR 500 MG TAB (VALTREX) PO SCH (08:47)
[2019-07-26] MEDS ORDERED: IBUP-1780 PO (08:50)
[2019-07-26] MEDS ORDERED: DCS100C PO (08:50)
[2019-07-26] MEDS ORDERED: ACET-93 PO (08:50)
[2019-07-26] MEDS ORDERED: OXYC5TAB96 PO (08:50)
--- NOTE | 2019-07-26 08:57 | Discharge Summary ---
Diagnosis/Chief Complaint Date of Admission Jul 24, 2019 at 22:49 Date of Discharge July 26, 2019 Discharge Date: Jul 26, 2019 Discharge Time: 09:00 Admission Diagnosis Admission Diagnosis Intrauterine at 38 4/7 weeks 2. SROM 3. HSV 2 4. Schizophrenia 5. Depression Discharge Diagnosis Intrauterine at 38 4/7 weeks--delivered 2. SROM 3. HSV 2 4. Schizophrenia 5. Depression Reason Hospital Visit Intrauterine at 38 4/7 weeks with SROM and active HSV 2 lesions Discharge Summary Hospital Course Was the Problem List Reviewed?: Yes Hospital Course Ms. Rodriguez was admitted to Labor & Delivery with SROM at 38 4/7 weeks and active HSV 2 lesions. She was taken for an immediate Primary Low Transverse C- Section. The procedure was performed without complications. Postoperatively, she was started on IV and oral pain medications and other comfort measures. Her vital signs remained stable throughout her hospitalization. The remainder of her hospitalization was unremarkable. She will be discharged to home with instructions, prescriptions, and a follow up appointment. Labs Laboratory Tests 07/24/19 23:00: Red Blood Count 3.84L, Hemoglobin 10.7L, Hematocrit 33L 07/26/19 05:12: Red Blood Count 3.23L, Hemoglobin 8.9L, Hematocrit 28L Procedures None. Discharge Physical Examination Allergies: Coded Allergies: No Known Drug Allergies (Unverified , 06/20/19) Vitals & I&Os Vital Signs Date Time Temp Pulse Resp B/P (MAP) Pulse Ox O2 Delivery O2 Flow Rate FiO2 07/26/19 08:46 36.2 07/26/19 04:00 67 18 111/67 (82) 97 Room Air General Appearance: Alert, Oriented X3, Cooperative HEENT: Atraumatic Respiratory: Clear to Auscultation, Normal Air Movement Cardiovascular: Regular Rate, No Murmurs Abdominal: Normal Bowel Sounds, Soft Extremities: No Clubbing, No Cyanosis Skin: No Rashes, No Breakdown Neuro: Normal Gait, Normal Speech Psych/Mental Status: Mental Status NL Discharge Home Medications Reviewed and agree with Discharge Medication list on patient's Discharge Instruction sheet Instructions to Patient/Family Please see electronic discharge instructions given to patient. Clinical Quality Measures DVT/VTE Risk/Contraindication: Risk Factor Score Per Nursin RFS Level Per Nursing on Admit: 1=Low/No VTE PPX AUBREY HAGAN DO Jul 26, 2019 08:56
--- NOTE | 2019-07-26 14:05 | NUR ---
Verbalized understanding of home instructions. To exit via wheelchair. Met family outside.
== END 2019-07-26 14:05 | disposition home or self-care (01) | DRG 787 ==
LOC: LDRP 22:21 → WSo 22:21 → LDRP 22:49
PROVIDERS: ADMIT Family Medicine; ATTEND Family Medicine
PROC: 10D00Z1 Extraction of Products of Conception, Low, Open Approach (ICD-10-PCS; principal; 2019-07-24 23:37)
DX: O98.32 Other infections with a predominantly sexual mode of transmission complicating childbirth (principal); O99.354 Diseases of the nervous system complicating childbirth; G80.9 Cerebral palsy, unspecified; O99.344 Other mental disorders complicating childbirth; F20.9 Schizophrenia, unspecified; F32.9 Major depressive disorder, single episode, unspecified; Z37.0 Single live birth; Z3A.38 38 weeks gestation of pregnancy; Z23 Encounter for immunization
CPT/HCPCS: 36415; 85025; 86850; 86900; 86901; 90715; 94664; 99212

== ENCOUNTER 2020-12-24 08:03 | Outpatient (CLI) | payer MEDICAID ==
[~2020-12-24] VITALS: Ht 175.3 cm; Wt 78.8 kg
[~2020-12-24 08:03] MED LIST changes: +ACET-93 PO; +ACYC400T21; +DCS100C PO; +IBUP-1780 PO; +OXC5T PO
[2020-12-24 08:20] VITALS: BP 114/55
[2020-12-24 08:30] VITALS: BP 114/55
[2020-12-24 08:49] LABS: CLARITY,URINE CLEAR; COLOR,URINE ORANGE; GLUCOSE, URINE (UA) NEGATIVE (NEGATIVE); KETONES,URINE NEGATIVE (NEGATIVE); LEUKOCYTE ESTERASE ,URINE 1+ (NEGATIVE); NITRITE,URINE NEGATIVE (NEGATIVE); PH,URINE 6.5 (5-9); PROTEIN,URINE 2+ (NEGATIVE)
[2020-12-24 09:01] LABS: BACTERIA,URINE FEW /HPF; BILIRUBIN,URINE 2+ (NEGATIVE)
[2020-12-24 11:00] VITALS: BP 109/77
[2020-12-24] MEDS ORDERED: LACTATED RINGERS 1,000 ML IV SCH (11:15)
--- NOTE | 2020-12-25 08:48 | Physician Query-Final Dx ---
Clinic Account Progress/Dx Physician Query: Please give diagnosis Please include # weeks gestation Date of Service Dec 24, 2020 at 08:03 MILADYS ROSA Dec 25, 2020 08:48
== END 2020-12-24 14:50 | disposition home or self-care (01) ==
LOC: WSo 08:03 → LDRP 08:04 → WSo 14:50
PROVIDERS: ATTEND Family Medicine
DX: O26.899 Other specified pregnancy related conditions, unspecified trimester (principal); R10.2 Pelvic and perineal pain; Z3A.00 Weeks of gestation of pregnancy not specified; Z20.822 Contact with and (suspected) exposure to COVID-19
CPT/HCPCS: 81000; 87088; 87635; 87804; 99213

== ENCOUNTER 2021-01-06 05:36 | Outpatient (CLI) | payer MEDICAID ==
[~2021-01-06] VITALS: Ht 172.7 cm; Wt 80.0 kg
[~2021-01-06 05:36] MED LIST changes: -DCS100C PO; +DOCU-239 PO
== END 2021-01-06 11:44 | disposition home or self-care (01) ==
LOC: PREOP 05:36
PROVIDERS: ATTEND Obstetrics & Gynecology
DX: Z01.818 Encounter for other preprocedural examination (principal)

== ENCOUNTER 2021-01-09 03:50 | Inpatient (IN) | payer MEDICAID ==
[2021-01-08 07:00] VITALS: BP 115/77
[2021-01-09] VITALS (8 sets, daily range): BP systolic 100–124; BP diastolic 60–80
[2021-01-09] MEDS ORDERED: ceFAZolin 2 GM IV Premixed 50 ML IV ONE (06:15)
[2021-01-09] MEDS ORDERED: CATHETER FLUSH 10 ML SYR IV PRN ×2 (06:15)
[2021-01-09] MEDS ORDERED: METOCLOPRAMIDE INJ 10 MG/2 ML (REGLAN) IV ONE ×2 (06:15)
[2021-01-09] MEDS ORDERED: LACTATED RINGERS 1,000 ML IV PRN ×3 (06:15)
[2021-01-09] MEDS ORDERED: CITRIC ACID/SOB CIT (BICITRA) 30 ML UDC PO ONE ×2 (06:15)
[2021-01-09] MEDS: LACTATED RINGERS 1,000 ML IV PRN ×2 (06:19→07:17)
[2021-01-09] MEDS ORDERED: FAMOTIDINE 20MG/2ML IV (PEPCID) IVP ONE (06:30)
[2021-01-09 06:40] LABS: BASOPHILS % (AUTO) 0 % (0-10); EOSINOPHILS # (AUTO) 0.1 10^3/uL (0.0-0.3); EOSINOPHILS % (AUTO) 2 % (0-10); HEMATOCRIT 33 % (35-52); HEMOGLOBIN 10.7 g/dL (11.5-16.0); LYMPHOCYTES # (AUTO) 1.6 10^3/uL (1.0-4.0); LYMPHOCYTES % (AUTO) 22 % (12-44); MEAN CORPUSCULAR HEMOGLOBIN 27 pg (25-34); MEAN CORPUSCULAR HGB CONC 32 g/dL (32-36); MEAN CORPUSCULAR VOLUME 85 fL (80-99); MONOCYTES # (AUTO) 0.7 10^3/uL (0.0-1.0); MONOCYTES % (AUTO) 9 % (0-12); NEUTROPHILS # (AUTO) 4.8 10^3/uL (1.8-7.8); NEUTROPHILS % (AUTO) 66 % (42-75); PLATELET COUNT 245 10^3/uL (130-400); WHITE BLOOD COUNT 7.3 10^3/uL (4.3-11.0)
--- NOTE | 2021-01-09 07:16 | History & Physical-OB ---
OB - Chief Complaint & HPI Date/Time Date of Admission: Date of Admission: Jan 09, 2021 at 06:04 Date seen by a Provider: Jan 09, 2021 Time Seen by a Provider: 07:05 Chief Complaint/History OB-Reason for Admission/Chief: Section Hx : 4 Hx Para: 3 Expected Date of Delivery: Jan 16, 2021 Gestational Age in Weeks: 39 Gestational Age in Days: 0 Indication for : desires repeat Admission Nurse Assessment Rev: Yes Allergies and Home Medications Allergies Coded Allergies: No Known Drug Allergies (Unverified , 06/20/19) Patient Home Medication List Home Medication List Reviewed: Yes No Active Prescriptions or Reported Meds OB - History Hx of Present Care: Yes Ultrasounds: Normal mid trimester US Obstetrical Complications: None Medical Complications: None Obstetrical History Hx Termination: No Hx Multiple Gestation: No Hx Stillbirth: No Hx Complication: No Hx Induced Hypertens: No Hx Maternal Gestational Diabet: No Delivery History Hx Dystocia: No Hx Large For Gestational Age I: No Hx Small for Gestational Age I: No Hx Section: No Hx Vaginal Delivery Post C-Sec: No Hx Blood Disorders: No Adverse Rxn to Tranfusion: No Patient Past Medical History PMHx: Schizophrenia Cerebral palsy Depression Genital herpes SurgHx: Left finger Social History/Family History 2nd Hand Smoke Exposure: No Immunizations Hepatitis A: Yes Hepatitis B: Yes Tetanus Booster (TDap): Less than 5yrs OB - Admission Exam Physical Exam HEENT: NCAT Heart: Rhythm Normal Lungs: Clear Abdomen: Gravid Extremities: Normal Reflexes: Normal Heart Rate: 130's Accelerations: Accelerations Present Decelerations: No Decelerations Short Term Variability: Present Medical Claims Analyst Variability: Average (6-25) Contractions on Admission: 6-10 Minutes Apart Intensity: Mild Labs Laboratory Tests Test 01/09/21 06:25 Range/Units White Blood Count 7.3 4.3-11.0 10^3/uL Red Blood Count 3.93 3.80-5.11 10^6/uL Hemoglobin 10.7 L 11.5-16.0 g/dL Hematocrit 33 L 35-52 % Mean Corpuscular Volume 85 80-99 fL Mean Corpuscular Hemoglobin 27 25-34 pg Mean Corpuscular Hemoglobin Concent 32 32-36 g/dL Red Cell Distribution Width 15.4 H 10.0-14.5 % Platelet Count 245 130-400 10^3/uL Mean Platelet Volume 10.0 9.0-12.2 fL Immature Granulocyte % (Auto) 1 % Neutrophils (%) (Auto) 66 42-75 % Lymphocytes (%) (Auto) 22 12-44 % Monocytes (%) (Auto) 9 0-12 % Eosinophils (%) (Auto) 2 0-10 % Basophils (%) (Auto) 0 0-10 % Neutrophils # (Auto) 4.8 1.8-7.8 10^3/uL Lymphocytes # (Auto) 1.6 1.0-4.0 10^3/uL Monocytes # (Auto) 0.7 0.0-1.0 10^3/uL Eosinophils # (Auto) 0.1 0.0-0.3 10^3/uL Basophils # (Auto) 0.0 0.0-0.1 10^3/uL Immature Granulocyte # (Auto) 0.0 0.0-0.1 10^3/uL OB - Assessment/Plan/Diagnosis Assessment Assessment: section Admission Dx 25 yo @ 39 weeks Previous Admission Status: Inpatient Order (span 2 midnights) Reason for Inpatient Admission: Repeat Plan Plan: Section MARIE RAI DO Jan 09, 2021 07:16
--- NOTE | 2021-01-09 07:23 | Discharge Inst-Women's Service ---
Discharge Inst-Women's Serv Depart Medication/Instructions New, Converted or Re-Newed RX: RX on Chart Final Diagnosis POD 2 RLTCS Problems Reviewed?: Yes Consults/Follow Up Additional Follow Up: Yes Orders/Referrals Dr. Guerrier/Dorothea in 7-10 days Activity Activity: Activity as Tolerated Driving Instructions: No Driving for 1 Week NO SMOKING: NO SMOKING Nothing Inside Vagina: No Douching, No Gramling, No Tampons Diet Discharge Diet: No Restrictions Symptoms to Report to : Bleeding Excessive, Pain Increased, Fever Over 101 Degrees F, Vaginal Bleeding Increase, Questions/Concerns For Any Problems or Questions: Contact Your Physician Skin/Wound Care Infection Signs and Symptoms: Increased Redness, Foul Odor of Wound, Increased Drainage, Skin Itchy or Has a Rash, Increased Swelling, Temperature Above 101 F Operative Area Clean and Dry: Keep Incision Clean/Dry Stitches/Tay/Dermabond: Dermabond, Care of Stitches Bathing Instructions: MARIE Gonsalez DO Jan 09, 2021 07:23
[2021-01-09] MEDS ORDERED: ACHD5005 PO (07:24)
[2021-01-09] MEDS ORDERED: DOCU100C37 PO (07:24)
[2021-01-09] MEDS ORDERED: IBUP-844 PO (07:24)
[2021-01-09] MEDS ORDERED: TETANUS,DIPTH,PERTUSS P/F (BOOSTRIX) 0.5 ML VIAL IM SCH (07:30)
[2021-01-09] MEDS ORDERED: NALOXONE 0.4 MG/ML 1 ML (NARCAN) VIAL IV PRN (07:30)
[2021-01-09] MEDS ORDERED: ONDANSETRON 4 MG/2 ML (SDV) Z0FRAN IVP PRN ×2 (07:30→08:45)
[2021-01-09] MEDS ORDERED: MEASLES,MUMPS,RUBELLA 1 EA INJ SC SCH (07:30)
[2021-01-09] MEDS ORDERED: ROPIVACAINE 5MG/ML 30ML VIAL ONE (07:38)
[2021-01-09] MEDS ORDERED: KETOROLAC 30 MG/ML VIAL ONE (08:29)
[2021-01-09] MEDS ORDERED: OXYTOCIN PRE-MIX DRIP 500 ML IV ONE (08:30)
[2021-01-09] MEDS ORDERED: HYDROmorphone 2 MG/ML VIAL (DILAUDID) IV ONE (08:45)
[2021-01-09] MEDS: OXYTOCIN PRE-MIX DRIP 500 ML IV SCH ×2 (09:08→10:15)
[2021-01-09] MEDS: KETOROLAC 30 MG/ML VIAL IV SCH ×3 (09:08→23:59)
[2021-01-09 10:00] LABS: BILIRUBIN,URINE NEGATIVE (NEGATIVE); CLARITY,URINE CLEAR; COLOR,URINE YELLOW; GLUCOSE, URINE (UA) NEGATIVE (NEGATIVE); KETONES,URINE NEGATIVE (NEGATIVE); LEUKOCYTE ESTERASE ,URINE NEGATIVE (NEGATIVE); NITRITE,URINE NEGATIVE (NEGATIVE); PROTEIN,URINE NEGATIVE (NEGATIVE)
[2021-01-09 10:36] LABS: BACTERIA,URINE MODERATE /HPF
--- NOTE | 2021-01-09 13:23 | OPERATIVE REPORT ---
DATE OF SERVICE: PREOPERATIVE DIAGNOSES: 1. A 25-year-old G4, P3 at 39 weeks' gestation. 2. Previous section. POSTOPERATIVE DIAGNOSES: 1. A 25-year-old G4, P3 at 39 weeks' gestation. 2. Previous section. PROCEDURE: Repeat low transverse section. SURGEON: Zac Rai DO ANESTHESIA: Spinal. ESTIMATED BLOOD LOSS: 600 mL. URINE OUTPUT: 50 mL clear at the end of the procedure. FLUIDS: 800 mL lactated Ringer's solution. FINDINGS: A live male weighing 7 pounds 12 ounces, Apgars of 8 and 8. Grossly normal appearing uterus, bilateral fallopian tubes and ovaries. SPECIMEN SENT: Placenta. INDICATIONS FOR PROCEDURE: This 25-year-old female is a patient who is consulted to me from the [facility] for evaluation and consultation for repeat . I discussed with the patient her preoperative appointment, the risks involved in the and she was well aware of with having a previous . After all of her questions were answered pertaining to the risk of surgery, the hospital stay, recovery timeframe, consent was obtained in the preoperative area and the patient was taken to the operating room. OPERATIVE REPORT IN DETAIL: Once in the operating room, spinal analgesia was found to be adequate. She was placed in supine position with leftward tilt, prepped and draped in normal sterile fashion. A timeout was performed and anesthesia was tested. I then make a Pfannenstiel skin incision through the previously existing scar using knife and carried down to underlying fascia using Bovie cautery. The fascial incision extended laterally using Bovie cautery. The superior aspect of fascial incision was then grasped with Quentin clamps, tented up and dissected off the underlying rectus muscles. The inferior aspect of the fascial incision was then grasped with Quentin clamps, tented up and dissected off the underlying rectus muscles. Rectus muscles were dissected down the midline using Amador scissors, which exposed the peritoneum, which I entered bluntly and extended using blunt traction. I then placed an Raul ring retractor within the peritoneal incision, which offers excellent lateral sidewall retraction. I identified the lower uterine segment, which was found to be thinned out and make a low transverse incision through the vesicouterine peritoneum and bluntly dissected off the lower uterine segment, creating a bladder flap. I then proceeded with my myotomy until membranes were visualized, at which point I extended the uterine incision laterally and superiorly using bandage scissors. Amniotomy was then performed using Allis clamp. Clear fluid was noted. The was found in vertex presentation. With gentle fundal pressure, the infant's head was elevated up the incision where it was delivered through the incision. The nares and oropharynx were bulb suctioned and nuchal cord was reduced x2. Anterior and posterior shoulders were delivered. The infant was then brought to the operative field where the cord was duly clamped and cut and was handed off to waiting nurses in attendance. Cord blood was collected, 3-vessel cord with intact placenta was delivered spontaneously thereafter. IV Pitocin was initiated to facilitate uterine contraction. Uterine fundus confirmed by manual massage. Uterus was then exteriorized and cleared of all endometrial clots and debris. I then proceeded with closing the uterine incision using 0 Vicryl suture in running locked fashion. Second layer of imbricating 0 Monocryl was placed. Excellent hemostasis was noted after doing this. I then placed the uterus back in the pelvis and copiously irrigated the pelvis using normal saline. Once again, there was no active bleeding noted from any of my dissection planes. I placed Interceed antiadhesive over my low transverse incision. I removed the Raul ring retractor and proceeded with closing the peritoneum using 3-0 Vicryl suture in running fashion. Rectus muscles were reapproximated using 3-0 Vicryl suture in interrupted fashion. The fascia was reapproximated using 0 Vicryl suture in a running fashion. The skin was reapproximated using 4-0 Monocryl running subcuticular. Dermabond was applied to incision and sterile dressing with adhesive white tape. The patient tolerated the procedure well and sent to recovery area in stable condition. Lap and sponge count was correct at the end of the procedure. Instrument counts correct as well. Two grams of Ancef given preoperatively for infection prophylaxis. Job ID: [id number] DocumentID: [id number] Dictated Date: 01/09/2021 08:32:00 Manager Employment Date: 01/09/2021 13:22:57 Dictated By: ZAC RAI DO
[2021-01-09] MEDS ORDERED: CATHETER FLUSH 10 ML SYR IV SCH (14:00)
[2021-01-09] MEDS: HYDROcodone/APAP 5 MG/325 MG (LORTAB) TAB PO PRN ×2 (14:04→20:14)
[2021-01-09] MEDS: DOCUSATE SODIUM 100 MG (COLACE) CAP PO SCH (20:14)
[2021-01-10 00:01] VITALS: BP 116/69
[2021-01-10] MEDS: HYDROcodone/APAP 5 MG/325 MG (LORTAB) TAB PO PRN ×4 (03:20→23:43)
[2021-01-10] MEDS ORDERED: SIMETHICONE 80 MG (MYLICON) CHEW PO ONE (03:30)
[2021-01-10 03:40] VITALS: BP 111/67
[2021-01-10 05:49] LABS: BASOPHILS % (AUTO) 0 % (0-10); EOSINOPHILS # (AUTO) 0.1 10^3/uL (0.0-0.3); EOSINOPHILS % (AUTO) 1 % (0-10); HEMATOCRIT 31 % (35-52); HEMOGLOBIN 9.8 g/dL (11.5-16.0); LYMPHOCYTES # (AUTO) 1.8 10^3/uL (1.0-4.0); LYMPHOCYTES % (AUTO) 17 % (12-44); MEAN CORPUSCULAR HEMOGLOBIN 28 pg (25-34); MEAN CORPUSCULAR HGB CONC 32 g/dL (32-36); MEAN CORPUSCULAR VOLUME 87 fL (80-99); MEAN PLATELET VOLUME 9.7 fL (9.0-12.2); MONOCYTES # (AUTO) 0.9 10^3/uL (0.0-1.0); MONOCYTES % (AUTO) 9 % (0-12); NEUTROPHILS # (AUTO) 7.6 10^3/uL (1.8-7.8); NEUTROPHILS % (AUTO) 72 % (42-75); PLATELET COUNT 209 10^3/uL (130-400); WHITE BLOOD COUNT 10.6 10^3/uL (4.3-11.0)
[2021-01-10] MEDS: KETOROLAC 30 MG/ML VIAL IV SCH (05:49)
[2021-01-10 08:18] VITALS: BP 111/73
[2021-01-10] MEDS: DOCUSATE SODIUM 100 MG (COLACE) CAP PO SCH ×2 (08:23→23:43)
--- NOTE | 2021-01-10 10:09 | Anesthesia-Regional Post-Op ---
Regional Patient Condition Mental Status: Alert, Oriented x3 Circulation: Same as Pre-Op Headache: Absent Sensation: Full Recovery Motor Block: Absent Post Op Complications Complications None Follow Up Care/Instructions Patient Instructions None needed. Anesthesia/Patient Condition Patient is doing well, no complaints, stable vital signs, no apparent adverse anesthesia problems. No complications reported per nursing. D/C home per [facility] Criteria: MELY Diaz CRNA Jan 10, 2021 10:09
--- NOTE | 2021-01-10 10:28 | Postpartum Progress Note ---
Note Note Day # 1 Subjective: Patient is without complaints. Ambulating, voiding. Tolerating a regular diet without nausea or vomiting. Normal lochia. Pain is well controlled with oral pain medications. Objective: Physical Exam: General - Alert and oriented, no apparent distress Abdomen - Soft, appropriately tender to palpation, non-distended, fundus firm at umbilicus Extremities - no edema, negative Becca's bilaterally Assessment: Post- day # 1, status post RLTCS. Recovering well, hemodynamically stable Acute blood loss anemia Plan: Routine care. Encourage breast feeding. Encourage ambulation. Ferrous sulfate supplementation. Plan for discharge tomorrow Vitals - Labs Vital Signs - I&O Vital Signs Date Time Temp Pulse Resp B/P (MAP) Pulse Ox O2 Delivery O2 Flow Rate FiO2 01/10/21 08:18 36.6 66 16 111/73 (86) 97 Room Air 01/10/21 03:40 36.5 66 18 111/67 (82) 98 Room Air 01/10/21 00:01 36.5 76 18 116/69 (85) 97 Room Air 01/09/21 20:15 36.5 73 20 124/80 (95) 100 Room Air 01/09/21 15:30 36.6 76 18 115/75 (88) 98 Room Air I & O 01/10/21 07:00 Intake Total 2450 ml Output Total 50 ml Balance 2400 ml Labs Laboratory Tests 01/10/21 05:23: White Blood Count 10.6, Red Blood Count 3.52L, Hemoglobin 9.8L, Hematocrit 31L, Mean Corpuscular Volume 87, Mean Corpuscular Hemoglobin 28, Mean Corpuscular Hemoglobin Concent 32, Red Cell Distribution Width 15.5H, Platelet Count 209, Mean Platelet Volume 9.7, Immature Granulocyte % (Auto) 1, Neutrophils (%) (Auto) 72, Lymphocytes (%) (Auto) 17, Monocytes (%) (Auto) 9, Eosinophils (%) (Auto) 1, Basophils (%) (Auto) 0, Neutrophils # (Auto) 7.6, Lymphocytes # (Auto) 1.8, Monocytes # (Auto) 0.9, Eosinophils # (Auto) 0.1, Basophils # (Auto) 0.0, Immature Granulocyte # (Auto) 0.1 GERMAN SIMEON APRN Jan 10, 2021 10:28
[2021-01-10] MEDS: IBUPROFEN 600 MG (MOTRIN) TAB PO SCH ×2 (11:53→18:17)
[2021-01-10 13:54] VITALS: BP 111/73
[2021-01-10 20:37] VITALS: BP 128/66
[2021-01-11] MEDS: IBUPROFEN 600 MG (MOTRIN) TAB PO SCH ×2 (00:27→06:13)
[2021-01-11 02:35] VITALS: BP 108/75
[2021-01-11] MEDS: HYDROcodone/APAP 5 MG/325 MG (LORTAB) TAB PO PRN (06:13)
--- NOTE | 2021-01-11 08:15 | Postpartum Progress Note ---
Note Note Day #2 Subjective: Patient is without complaints. Ambulating, voiding. Tolerating a regular diet without nausea or vomiting. Normal lochia. Pain is well controlled with oral pain medications. Objective: Physical Exam: General - Alert and oriented, no apparent distress Abdomen - Soft, appropriately tender to palpation, non-distended, fundus firm at umbilicus Extremities - no edema, negative Becca's bilaterally Incision- c/d/i Assessment: POD 2 RLTCS Acute blood loss anemia Plan: Routine care. Encourage breast feeding. Encourage ambulation. Ferrous sulfate supplementation. Plan for discharge today Vitals - Labs Vital Signs - I&O Vital Signs Date Time Temp Pulse Resp B/P (MAP) Pulse Ox O2 Delivery O2 Flow Rate FiO2 01/11/21 02:35 36.8 61 18 108/75 (86) 99 Room Air 01/10/21 20:37 36.7 80 20 128/66 (86) 98 Room Air 01/10/21 13:54 36.8 75 16 111/73 (86) 99 Room Air 01/10/21 08:18 36.6 66 16 111/73 (86) 97 Room Air Labs Microbiology 01/09/21 MRSA Screen - Final, Complete MRSA not isolated 01/09/21 Urine Culture - Final, Complete Mixed Bacterial Marley MARIE RAI DO Jan 11, 2021 08:15
[2021-01-11 08:46] VITALS: BP 118/72
== END 2021-01-11 09:32 | disposition home or self-care (01) | DRG 787 ==
LOC: LDRP 06:04
PROVIDERS: ADMIT Obstetrics & Gynecology; ATTEND Obstetrics & Gynecology
PROC: 10D00Z1 Extraction of Products of Conception, Low, Open Approach (ICD-10-PCS; principal; 2021-01-09 07:17)
DX: O34.211 Maternal care for low transverse scar from previous cesarean delivery (principal); D62 Acute posthemorrhagic anemia; O99.344 Other mental disorders complicating childbirth; F20.9 Schizophrenia, unspecified; F32.A Depression, unspecified; Z3A.39 39 weeks gestation of pregnancy; Z37.0 Single live birth; O90.81 Anemia of the puerperium
CPT/HCPCS: 36415; 81000; 83033; 85025; 86850; 86900; 86901; 87081; 87088; 94664

== ENCOUNTER 2022-02-07 04:43 | Outpatient (CLI) | payer MEDICAID ==
[~2022-02-07] VITALS: Ht 170.2 cm; Wt 81.0 kg
[~2022-02-07 04:43] MED LIST changes: +ACHD5005 PO; +DOCU100C37 PO; +IBUP-844 PO
[2022-02-07] MEDS ORDERED: PREN-8 PO (04:55)
[2022-02-07 05:01] VITALS: BP 121/77
[2022-02-07 05:31] LABS: COLOR,URINE YELLOW
[2022-02-07 05:32] LABS: BACTERIA,URINE FEW /HPF; BILIRUBIN,URINE NEGATIVE (NEGATIVE); CLARITY,URINE SL CLOUDY; GLUCOSE, URINE (UA) NEGATIVE (NEGATIVE); KETONES,URINE NEGATIVE (NEGATIVE); LEUKOCYTE ESTERASE ,URINE NEGATIVE (NEGATIVE); NITRITE,URINE NEGATIVE (NEGATIVE); PH,URINE 6.5 (5-9); PROTEIN,URINE TRACE (NEGATIVE)
[2022-02-07 06:13] LABS: BASOPHILS % (AUTO) 0 % (0-10); EOSINOPHILS % (AUTO) 1 % (0-10); HEMATOCRIT 34 % (35-52); HEMOGLOBIN 10.8 g/dL (11.5-16.0); LYMPHOCYTES # (AUTO) 1.3 10^3/uL (1.0-4.0); LYMPHOCYTES % (AUTO) 16 % (12-44); MEAN CORPUSCULAR HEMOGLOBIN 29 pg (25-34); MEAN CORPUSCULAR HGB CONC 32 g/dL (32-36); MEAN CORPUSCULAR VOLUME 91 fL (80-99); MEAN PLATELET VOLUME 9.4 fL (9.0-12.2); MONOCYTES # (AUTO) 0.6 10^3/uL (0.0-1.0); MONOCYTES % (AUTO) 7 % (0-12); NEUTROPHILS # (AUTO) 6.1 10^3/uL (1.8-7.8); NEUTROPHILS % (AUTO) 76 % (42-75); PLATELET COUNT 272 10^3/uL (130-400); WHITE BLOOD COUNT 8.1 10^3/uL (4.3-11.0)
[2022-02-07 06:31] LABS: ALBUMIN 3.4 GM/DL (3.2-4.5); POTASSIUM 3.7 MMOL/L (3.6-5.0)
[2022-02-07 06:32] LABS: CALCIUM 8.3 MG/DL (8.5-10.1)
[2022-02-07 06:33] LABS: TOTAL PROTEIN 6.5 GM/DL (6.4-8.2)
[2022-02-07 06:35] LABS: BILIRUBIN,TOTAL 0.2 MG/DL (0.1-1.0)
[2022-02-07 06:37] LABS: CREATININE SERUM 0.67 MG/DL (0.60-1.30)
[2022-02-07 07:11] VITALS: BP 118/69
--- NOTE | 2022-02-09 08:27 | Physician Query-Final Dx ---
Clinic Account Progress/Dx Physician Query: Please give diagnosis Please include # weeks gestation Date of Service Feb 07, 2022 at 04:43 MOE,AprFeb 09, 2022 08:27
== END 2022-02-07 06:54 | disposition home or self-care (01) ==
LOC: LDRP 04:43 → WSo 04:43 → LDRP 07:05 → WSo 07:05
PROVIDERS: ATTEND Family Medicine
DX: O26.892 Other specified pregnancy related conditions, second trimester (principal); R10.9 Unspecified abdominal pain; Z3A.26 26 weeks gestation of pregnancy
CPT/HCPCS: 36415; 80053; 81000; 85025; 87077; 87088

== ENCOUNTER 2022-03-20 17:36 | Outpatient (CLI) | payer MEDICAID ==
[~2022-03-20] VITALS: Ht 175.5 cm; Wt 83.9 kg
[2022-03-20 18:00] VITALS: BP 107/74
[2022-03-20 18:10] LABS: BILIRUBIN,URINE NEGATIVE (NEGATIVE); CLARITY,URINE CLEAR; COLOR,URINE ORANGE; GLUCOSE, URINE (UA) NEGATIVE (NEGATIVE); KETONES,URINE TRACE (NEGATIVE); LEUKOCYTE ESTERASE ,URINE NEGATIVE (NEGATIVE); NITRITE,URINE NEGATIVE (NEGATIVE); PH,URINE 6.5 (5-9); PROTEIN,URINE 1+ (NEGATIVE)
[2022-03-20 18:16] LABS: BACTERIA,URINE LARGE /HPF; RBC,URINE 25-50 /HPF
[2022-03-20] MEDS ORDERED: NS IV 1000 ML 1,000 ML IV SCH (19:00)
[2022-03-20] MEDS ORDERED: OSELTAMIVIR 75 MG (TAMIFLU) CAPSULE PO NR (19:00)
[2022-03-20 20:23] VITALS: BP 105/53
--- NOTE | 2022-03-23 08:39 | Physician Query-Final Dx ---
MOE03/23/22 0839: Clinic Account Progress/Dx Physician Query: Please give diagnosis Please include # weeks gestation Date of Service Mar 20, 2022 at 17:36 KAMERON LYLE DO 03/23/222003: Clinic Account Progress/Dx DIAGNOSIS: Diagnosis at 32wk GA Influenza Dehydration MOE,AprMar 23, 2022 08:39 KAMERON LYLE DO Mar 23, 2022 20:04
== END 2022-03-20 21:05 | disposition home or self-care (01) ==
LOC: WSo 17:36 → LDRP 17:37 → WSo 21:05
PROVIDERS: ATTEND Family Medicine
DX: O26.893 Other specified pregnancy related conditions, third trimester (principal); J11.1 Influenza due to unidentified influenza virus with other respiratory manifestations; Z3A.32 32 weeks gestation of pregnancy
CPT/HCPCS: 81000; 87077; 87088; 87186

== ENCOUNTER → 2022-03-20 | Outpatient (CLI) | payer MEDICAID ==
[~2022-03-20] MED LIST changes: +PREN-8 PO
[2022-03-20 11:17] LABS: BASOPHILS % (AUTO) 0 % (0-10); EOSINOPHILS # (AUTO) 0.1 10^3/uL (0.0-0.3); EOSINOPHILS % (AUTO) 1 % (0-10); HEMATOCRIT 32 % (35-52); LYMPHOCYTES # (AUTO) 0.8 10^3/uL (1.0-4.0); LYMPHOCYTES % (AUTO) 14 % (12-44); MEAN CORPUSCULAR HEMOGLOBIN 27 pg (25-34); MEAN CORPUSCULAR HGB CONC 31 g/dL (32-36); MEAN CORPUSCULAR VOLUME 87 fL (80-99); MONOCYTES # (AUTO) 0.8 10^3/uL (0.0-1.0); MONOCYTES % (AUTO) 14 % (0-12); NEUTROPHILS % (AUTO) 70 % (42-75); PLATELET COUNT 222 10^3/uL (130-400); WHITE BLOOD COUNT 5.7 10^3/uL (4.3-11.0)
[2022-03-20 11:46] LABS: ALBUMIN 3.2 GM/DL (3.2-4.5); BILIRUBIN,TOTAL 0.3 MG/DL (0.1-1.0); CALCIUM 8.5 MG/DL (8.5-10.1); CREATININE SERUM 0.63 MG/DL (0.60-1.30); POTASSIUM 3.9 MMOL/L (3.6-5.0); TOTAL PROTEIN 6.2 GM/DL (6.4-8.2)
== END ==
LOC: LAB 10:53
PROVIDERS: ATTEND Family Medicine
DX: R00.0 Tachycardia, unspecified (principal)
CPT/HCPCS: 36415; 80053; 83880; 84443; 85025

== ENCOUNTER 2022-04-07 11:18 | Outpatient (CLI) | payer MEDICAID ==
[2022-04-07 12:17] VITALS: BP 117/75
--- NOTE | 2022-04-08 09:21 | Physician Query-Final Dx ---
Clinic Account Progress/Dx Physician Query: Please give diagnosis Please include # weeks gestation Date of Service Apr 07, 2022 at 11:18 WHEAT,AprApr 08, 2022 09:21
== END 2022-04-07 11:55 | disposition home or self-care (01) ==
LOC: WSo 11:18 → LDRP 11:18 → WSo 11:55
PROVIDERS: ATTEND Family Medicine
DX: O9A.213 Injury, poisoning and certain other consequences of external causes complicating pregnancy, third trimester (principal); Z3A.34 34 weeks gestation of pregnancy
CPT/HCPCS: 99212

== ENCOUNTER → 2022-04-07 | Outpatient (CLI) | payer MEDICAID | LOC: CARD 12:20 | PROVIDERS: ATTEND Nurse Practitioner Family | DX: R00.0 Tachycardia, unspecified (principal) | CPT/HCPCS: 93225; 93226 ==

== ENCOUNTER 2022-04-30 05:29 | Outpatient (CLI) | payer MEDICAID ==
[~2022-04-30] VITALS: Ht 175.3 cm; Wt 84.6 kg
[2022-04-30] MEDS ORDERED: OSEL45CA4 PO (11:45)
[2022-04-30] MEDS ORDERED: ONDA4TAB11 SL (11:45)
== END 2022-04-30 12:44 | disposition home or self-care (01) ==
LOC: PREOP 05:29
PROVIDERS: ATTEND Obstetrics & Gynecology
DX: Z01.818 Encounter for other preprocedural examination (principal)

== ENCOUNTER 2022-05-08 05:29 | Inpatient (IN) | payer MEDICAID ==
[2022-05-08] VITALS (9 sets, daily range): BP systolic 85–123; BP diastolic 47–92
[~2022-05-08] VITALS: Ht 176 cm; Wt 86.2 kg
[~2022-05-08 05:29] MED LIST changes: +ONDA4TAB11 SL; +OSEL45CA4 PO
--- OUTSIDE RECORDS SUMMARY | 2022-05-08 05:32 | XMS REPORT ---
Author Author [facility] Address Unknown Phone Unavailable Care Team Providers Care Towel Weaver Name Role Phone AUBREY Duarte Unavailable PROBLEMS Type Condition ICD9-CM Code [id number] Code Onset Dates Condition S tatus W/U Status Risk SNOMED Code Notes Problem Cough, unspecified type R05.9 confirmed 12113366 Problem 22 weeks gestation of Z3A.22 confi rmed [id number] Problem Vomiting, unspecified vomiting type, uns pecified whether nausea present R11.10 confirmed 684630679 Problem Adjustment reaction with anxiety and depression F43.23 confirmed 203211070 Problem Abnormal uterine bleeding (AUB) N93.9 confi rmed [id number] Problem Schizoaffective disorder, unspecified type F25.9 confirmed 80613454 Problem Late menses N91.0 confirmed 51374053 Problem HSV (herpes simplex virus) anogenital infection A60.9 confirmed 890811793 Problem Mild intellectual disability F70 confirme d 24984380 Problem Paranoid schizophrenia F20.0 confirmed 40971062 Problem Paranoid schizophrenia F20.0 confirmed 51633744 Problem Sciatica, right side M54.31 confirmed [id number] Problem Sciatica, left side M54.32 confirmed 24803164 Problem Unspecified psychosis F29 confirmed 91855085 chronic AH - does not meet criteria for schizophrenia or schizoaffective disorder at this time Problem Auditory hallucinations R44.0 confirmed 88623869 Problem History of posttraumatic stress disorder (PTSD) Z86.59 confirmed 912279286872457 Problem Slow transit constipation K59.01 confirmed 02831386 Problem care in third trimester Z34.93 conf irmed 483399043 Problem Maternal care for anti-D [Rh] antibodies, third trimester, fetus 1 O36.0131 confirmed Problem Amenorrhea N91.2 confirmed 37953233 Problem Third trimester Z34.93 confirmed 06241634 Problem Abnormality of gait R26.9 confirmed 50728076 Problem Irritable bowel syndrome with diarrhea K58.0 confirmed 734734966 Problem Previous section complicating O 34.219 confirmed 751115001 Problem care in first trimester Z34.91 conf irm ALLERGIES No Known Allergies IMMUNIZATIONS Vaccine Route Administration Date Status tdap (history) Unknown July 26, 2019 Administered PRIVATE TDAP (BOOSTRIX) IM Intramuscular Mar 03, 2022 Adminis tered PRIVATE TDAP (BOOSTRIX) IM Intramuscular May 25, 2019 Adminis tered SOCIAL HISTORY Sex Assigned At : Social History Observation Description Sex Assigned At Unknown Alcohol Screen (Audit-C) Question Answer Notes Did you have a drink containing alcohol in the past year? No Points 0 Interpretation Negative Sexual History Question Answer Notes Had sex in the past 12 months (vaginal, oral, or anal)? Yes Last menstrual period 10/20/2018 Have you ever had a Sexually transmitted disease? Yes with Men only Herpes? Yes PHQ2 Question Answer Notes In the last 2 weeks, how often have you had little interest or pleasure in doing things? Not at all In the last 2 weeks, how often have you been feeling down, depressed, or hopeless? Not at all Total PHQ2 Score 0 Tobacco use other than smoking: Question Answer Notes Are you an other tobacco user? No REASON FOR REFERRAL No Information VITAL SIGNS No information MEDICATIONS Medication SIG (Take, Route, Frequency, Duration) Notes Start Da te End Date Status 27-1 MG 1 tablet Orally Once a day Active PROCEDURES No Information RESULTS No Results REASON FOR VISIT OB 1 wk f/u MEDICAL (GENERAL) HISTORY Type Description Date Medical History cerebral palsy Medical History Bipolar disorder Medical History Schizophrenia Medical History depression Medical History herpes Surgical History Left finger when she was 8 Surgical History Section 07/25/2019 Surgical History 01/09/21 Hospitalization History [place] x 1 week 04/2017 Hospitalization History childbirth () 07/30 Hospitalization History childbirth () 01/09/21 Goals Section No Information Health Concerns No Information MEDICAL EQUIPMENT No Information MENTAL STATUS No Information FUNCTIONAL STATUS No Information ASSESSMENTS No Information PLAN OF TREATMENT Next Appt Details Provider Name:MERLY ONEIL, 2022-04 01:30:00 PM, [address] [facility], [id number], [place], [address], Provider Name:JACKY SALDANA, 04-28 03:00:00 PM, [address] [facility], [id number], [place], [address], Provider Name:SONIAEliseo BLEVINS, 2022-04-12 8 08:20:00 AM, [address] [facility], [place], [address], Provider Name:JENNIFER NUÑEZ, 2022-05-06 0 9:20:00 AM, [address] [facility], [id number], [place], [address], Provider Name:LIZZETTE PEACOCK, 2022-06-02 10:00:00 AM, [address] [facility], [id number], [place], [address], Insurance Providers Payer Name Payer Address Payer Phone Insured Name Patient Relati onship to Insured Coverage Start Date Coverage End Date Subscriber Number Group Nu mber LEIDA [employer] [facility] [address] [address] [facility] [address] Alla Rodriguez Self - patient is the insured 2018 [id number] MEDICATIONS ADMINISTERED Medication Instructions Date of Administration Dosage Rho D Immune Globulin Feb, 300 mcg RHOGAM FULL DOSE May, 300 mcg
--- OUTSIDE RECORDS SUMMARY | 2022-05-08 05:32 | XMS REPORT ---
Author Author [facility] Address Unknown Phone Unavailable Care Team Providers Care Shactor Helper Name Role Phone SONIA BLEVINS Unavailable PROBLEMS Type Condition ICD9-CM Code RSO73-II Code Onset Dates Condition S tatus W/U Status Risk SNOMED Code Notes Problem Cough, unspecified type R05.9 confirmed 19427966 Problem 22 weeks gestation of Z3A.22 confi rmed 17987000 Problem Vomiting, unspecified vomiting type, uns pecified whether nausea present R11.10 confirmed 154448102 Problem Adjustment reaction with anxiety and depression F43.23 confirmed 531025349 Problem Abnormal uterine bleeding (AUB) N93.9 confi rmed [id number] Problem Schizoaffective disorder, unspecified type F25.9 confirmed 22568579 Problem Late menses N91.0 confirmed 31139782 Problem HSV (herpes simplex virus) anogenital infection A60.9 confirmed 499243691 Problem Mild intellectual disability F70 confirme d 60659190 Problem Paranoid schizophrenia F20.0 confirmed 49392387 Problem Paranoid schizophrenia F20.0 confirmed 50228632 Problem Sciatica, right side M54.31 confirmed 66490929889593376 Problem Sciatica, left side M54.32 confirmed 16751022 Problem Unspecified psychosis F29 confirmed 16836614 chronic AH - does not meet criteria for schizophrenia or schizoaffective disorder at this time Problem Auditory hallucinations R44.0 confirmed 55310140 Problem History of posttraumatic stress disorder (PTSD) Z86.59 confirmed 496598887398636 Problem Slow transit constipation K59.01 confirmed 04982413 Problem care in third trimester Z34.93 conf irmed 941522669 Problem Maternal care for anti-D [Rh] antibodies, third trimester, fetus 1 O36.0131 confirmed Problem Amenorrhea N91.2 confirmed 64971128 Problem Third trimester Z34.93 confirmed 07977215 Problem Abnormality of gait R26.9 confirmed 70787525 Problem Irritable bowel syndrome with diarrhea K58.0 confirmed 786786350 Problem Previous section complicating O 34.219 confirmed 885761458 Problem care in first trimester Z34.91 conf [...] RESULTS No Results REASON FOR VISIT OB F/U. OB Dip. TDap today. MEDICAL (GENERAL) HISTORY Type Description Date Medical [...] No Information FUNCTIONAL STATUS No Information ASSESSMENTS Encounter Date Diagnosis Assessment Notes Treatment Notes Treatm ent Clinical Notes May, Third trimester (ICD-10 - Z34. 93) PLAN OF TREATMENT Next Appt Details Provider Name:MERLY ONEIL, 2022-04 01:30:00 PM, [address] [facility], [id number], [place], [address], Provider Name:JACKY SALDANA, 04-28 03:00:00 PM, [address] [facility], [id number], [place], [address], Provider Name:SONIA BLEVINS, 2022-04-12 8 08:20:00 AM, [address] , [place], [address], Provider Name:JENNIFER NUÑEZ, 2022-05-06 0 9:20:00 AM, [address] [facility], [id number], [place], [address], Provider Name:LIZZETTE PEACOCK, 2022-06-02 10:00:00 AM, [address] [facility], [id number], [place], [address], Insurance Providers Payer Name Payer Address Payer Phone Insured Name Patient Relati onship to Insured Coverage Start Date Coverage End Date Subscriber Number Group Nu mber LEIDA [employer]etna [facility] [address] [address] [facility] [phone] Alla Rodriguez Self - patient is the insured 2018 [id number] MEDICATIONS ADMINISTERED Medication Instructions Date of Administration Dosage Rho D Immune Globulin Feb, 300 mcg RHOGAM FULL DOSE May, 300 mcg
--- OUTSIDE RECORDS SUMMARY | 2022-05-08 05:32 | XMS REPORT ---
Author Author [facility] Address Unknown Phone Unavailable Care Team Providers Care Pediatric Lpn Name Role Phone FAM Kruger Unavailable PROBLEMS Type Condition ICD9-CM Code WGF27-VA Code Onset Dates Condition S tatus W/U Status Risk SNOMED Code Notes Problem Cough, unspecified type R05.9 confirmed 47145747 Problem 22 weeks gestation of Z3A.22 confi rmed 90592928 Problem Vomiting, unspecified vomiting type, uns pecified whether nausea present R11.10 confirmed 826777027 Problem Adjustment reaction with anxiety and depression F43.23 confirmed 962578080 Problem Abnormal uterine bleeding (AUB) N93.9 confi rmed 22515601087726 Problem Schizoaffective disorder, unspecified type F25.9 confirmed 65198716 Problem Late menses N91.0 confirmed 19337074 Problem HSV (herpes simplex virus) anogenital infection A60.9 confirmed 070268670 Problem Mild intellectual disability F70 confirme d 30329698 Problem Paranoid schizophrenia F20.0 confirmed 32184232 Problem Paranoid schizophrenia F20.0 confirmed 12789437 Problem Sciatica, right side M54.31 confirmed 69911090938472231 Problem Sciatica, left side M54.32 confirmed 64041973 Problem Unspecified psychosis F29 confirmed 28055998 chronic AH - does not meet criteria for schizophrenia or schizoaffective disorder at this time Problem Auditory hallucinations R44.0 confirmed 22984947 Problem History of posttraumatic stress disorder (PTSD) Z86.59 confirmed 742230927431754 Problem Slow transit constipation K59.01 confirmed 66364775 Problem care in third trimester Z34.93 conf irmed 047697205 Problem Maternal care for anti-D [Rh] antibodies, third trimester, fetus 1 O36.0131 confirmed Problem Amenorrhea N91.2 confirmed 30298096 Problem Third trimester Z34.93 confirmed 60264217 Problem Abnormality of gait R26.9 confirmed 56196549 Problem Irritable bowel syndrome with diarrhea K58.0 confirmed 309163955 Problem Previous section complicating O 34.219 confirmed 257447656 Problem care in first trimester Z34.91 conf [...] RESULTS No Results REASON FOR VISIT OB f/u MEDICAL (GENERAL) HISTORY Type Description Date [...] Name:MERLY ONEIL, 2022-04 01:30:00 PM, [address] [facility], [id number], [place], [address], Provider Name:JACKY SALDANA, 04-28 03:00:00 PM, [address] [facility], [id number], [place], [address], Provider Name:SONIA BLEVINS, 2022-04-12 8 08:20:00 AM, [address] [facility], [place], [address], Provider Name:JENNIFER NUÑEZ, 2022-05-06 0 9:20:00 AM, [address] [facility], [id number], [place], [address], Provider Name:LIZZETTE PEACOCK, 2022-06-02 10:00:00 AM, [address] [facility], [id number], [place], [address], Insurance Providers Payer Name Payer Address Payer Phone Insured Name Patient Relati onship to Insured Coverage Start Date Coverage End Date Subscriber Number Group Nu mber LEIDA [employer]etna [facility] [address] [address] [facility] [address] Alla Rodriguez Self - patient is the insured 2018 [id number] MEDICATIONS ADMINISTERED Medication Instructions Date of Administration Dosage Rho D Immune Globulin Feb, 300 mcg RHOGAM FULL DOSE May, 300 mcg
--- OUTSIDE RECORDS SUMMARY | 2022-05-08 05:32 | XMS REPORT ---
Author Author [facility] Address Unknown Phone Unavailable Care Team Providers Care Tool Turret Lathe Set Up Operator Name Role Phone VIDAL MYRICK Unavailable PROBLEMS Type Condition ICD9-CM Code WVA88-JM Code Onset Dates Condition S tatus W/U Status Risk SNOMED Code Notes Problem Cough, unspecified type R05.9 confirmed 53587780 Problem 22 weeks gestation of Z3A.22 confi rmed 65522417 Problem Vomiting, unspecified vomiting type, uns pecified whether nausea present R11.10 confirmed 099961008 Problem Adjustment reaction with anxiety and depression F43.23 confirmed 246200762 Problem Abnormal uterine bleeding (AUB) N93.9 confi rmed 46069168766536 Problem Schizoaffective disorder, unspecified type F25.9 confirmed 37324884 Problem Late menses N91.0 confirmed 56920339 Problem HSV (herpes simplex virus) anogenital infection A60.9 confirmed 464544397 Problem Mild intellectual disability F70 confirme d 24422280 Problem Paranoid schizophrenia F20.0 confirmed 92545384 Problem Paranoid schizophrenia F20.0 confirmed 12532519 Problem Sciatica, right side M54.31 confirmed 10397789600184497 Problem Sciatica, left side M54.32 confirmed 30458071 Problem Unspecified psychosis F29 confirmed 10983706 chronic AH - does not meet criteria for schizophrenia or schizoaffective disorder at this time Problem Auditory hallucinations R44.0 confirmed 21578044 Problem History of posttraumatic stress disorder (PTSD) Z86.59 confirmed 782284338421581 Problem Slow transit constipation K59.01 confirmed 68526049 Problem care in third trimester Z34.93 conf irmed 745736238 Problem Maternal care for anti-D [Rh] antibodies, third trimester, fetus 1 O36.0131 confirmed Problem Amenorrhea N91.2 confirmed 35410249 Problem Third trimester Z34.93 confirmed 84711606 Problem Abnormality of gait R26.9 confirmed 89952998 Problem Irritable bowel syndrome with diarrhea K58.0 confirmed 799355933 Problem Previous section complicating O 34.219 confirmed 149112196 Problem care in first trimester Z34.91 conf [...] RESULTS No Results REASON FOR VISIT OB 3wk f/u MEDICAL (GENERAL) HISTORY Type Description Date [...] Name:MERLY ONEIL, 2022-04 01:30:00 PM, [address] [facility], [id number], [place], [address], Provider Name:JACKY SALDANA, 04-28 03:00:00 PM, [address] [facility], [id number], [place], [address], Provider Name:SONIA BLEVINS, 2022-04-12 8 08:20:00 AM, [address] [facility], [place], [address], Provider Name:JENNIFER NUÑEZ, 2022-05-06 0 9:20:00 AM, [address] [facility], [id number], [place], [address], Provider Name:LIZZETTE PEACOCK, 2022-06-02 10:00:00 AM, [address] [facility], [id number], [place], [address], Insurance Providers Payer Name Payer Address Payer Phone Insured Name Patient Relati onship to Insured Coverage Start Date Coverage End Date Subscriber Number Group Nu mber LEIDA [employer]etna [facility] [address] [address] [facility] [address] Alla Rodriguez Self - patient is the insured 2018 [id number] MEDICATIONS ADMINISTERED Medication Instructions Date of Administration Dosage Rho D Immune Globulin Feb, 300 mcg RHOGAM FULL DOSE May, 300 mcg
--- OUTSIDE RECORDS SUMMARY | 2022-05-08 05:32 | XMS REPORT ---
Author Author [facility] Address Unknown Phone Unavailable Care Team Providers Care Buyer Internship Name Role Phone FAM Kruger Unavailable PROBLEMS Type Condition ICD9-CM Code [id number] Code Onset Dates Condition S tatus W/U Status Risk SNOMED Code Notes Problem Cough, unspecified type R05.9 confirmed 43121782 Problem 22 weeks gestation of Z3A.22 confi rmed 64377376 Problem Vomiting, unspecified vomiting type, uns pecified whether nausea present R11.10 confirmed 450959888 Problem Adjustment reaction with anxiety and depression F43.23 confirmed 391909919 Problem Abnormal uterine bleeding (AUB) N93.9 confi rmed 10103443318392 Problem Schizoaffective disorder, unspecified type F25.9 confirmed 11202817 Problem Late menses N91.0 confirmed 34401673 Problem HSV (herpes simplex virus) anogenital infection A60.9 confirmed 001482135 Problem Mild intellectual disability F70 confirme d 32694401 Problem Paranoid schizophrenia F20.0 confirmed 55816431 Problem Paranoid schizophrenia F20.0 confirmed 99439317 Problem Sciatica, right side M54.31 confirmed 52966388068278830 Problem Sciatica, left side M54.32 confirmed 91824606 Problem Unspecified psychosis F29 confirmed 64529814 chronic AH - does not meet criteria for schizophrenia or schizoaffective disorder at this time Problem Auditory hallucinations R44.0 confirmed 02983749 Problem History of posttraumatic stress disorder (PTSD) Z86.59 confirmed 736301002228568 Problem Slow transit constipation K59.01 confirmed 30309370 Problem care in third trimester Z34.93 conf irmed 344974068 Problem Maternal care for anti-D [Rh] antibodies, third trimester, fetus 1 O36.0131 confirmed Problem Amenorrhea N91.2 confirmed 98799556 Problem Third trimester Z34.93 confirmed 01989450 Problem Abnormality of gait R26.9 confirmed 33646072 Problem Irritable bowel syndrome with diarrhea K58.0 confirmed 847785451 Problem Previous section complicating O 34.219 confirmed 629286725 Problem care in first trimester Z34.91 conf [...] REASON FOR REFERRAL No Information VITAL SIGNS Weight 179.7 lbs Jul, Blood pressure systolic 112 mmHg Jul, Blood pressure diastolic 70 mmHg Jul, MEDICATIONS Medication SIG (Take, Route, Frequency, Duration) Notes Start Da te End Date Status 27-1 MG 1 tablet Orally Once a day Active PROCEDURES No Information RESULTS No Results REASON FOR VISIT 1 week f/u MEDICAL (GENERAL) HISTORY Type Description Date [...] Information PLAN OF TREATMENT Next Appt Details 1 Week, 1 Week Reason: Provider Name:MERLY Lula THAD, 2022-04 01:30:00 PM, [address] [facility], [id number], [place], [address], Provider Name:JACKY SALDANA, 04-28 03:00:00 PM, [address] [facility], [id number], [place], [address], Provider Name:SONIA BLEVINS, 2022-04-12 8 08:20:00 AM, [address], [place], [address], Provider Name:JENNIFER NUÑEZ, 2022-05-06 0 9:20:00 AM, [address] [facility], [id number], [place], [address], Provider Name:LIZZETTE Isha MADONNA, 2022-06-02 10:00:00 AM, [address] [facility], [id number], [place], [address], Insurance Providers Payer Name Payer Address Payer Phone Insured Name Patient Relati onship to Insured Coverage Start Date Coverage End Date Subscriber Number Group Nu mber LEIDA Aetna [facility] [address] [address] [facility] [address] Alla Rodriguez Self - patient is the insured 2018 [id number] MEDICATIONS ADMINISTERED Medication Instructions Date of Administration Dosage Rho D Immune Globulin Feb, 300 mcg RHOGAM FULL DOSE May, 300 mcg
--- OUTSIDE RECORDS SUMMARY | 2022-05-08 05:32 | XMS REPORT ---
Author Author [facility] Address Unknown Phone Unavailable Care Team Providers Care Power Saw Operator Name Role Phone SONIA BLEVINS Unavailable PROBLEMS Type Condition ICD9-CM Code LNL57-BT Code Onset Dates Condition S tatus W/U Status Risk SNOMED Code Notes Problem Cough, unspecified type R05.9 confirmed 19898910 Problem 22 weeks gestation of Z3A.22 confi rmed 98013638 Problem Vomiting, unspecified vomiting type, uns pecified whether nausea present R11.10 confirmed 687011564 Problem Adjustment reaction with anxiety and depression F43.23 confirmed 788619328 Problem Abnormal uterine bleeding (AUB) N93.9 confi rmed 30070924678633 Problem Schizoaffective disorder, unspecified type F25.9 confirmed 91970980 Problem Late menses N91.0 confirmed 35620909 Problem HSV (herpes simplex virus) anogenital infection A60.9 confirmed 527984285 Problem Mild intellectual disability F70 confirme d 73380976 Problem Paranoid schizophrenia F20.0 confirmed 40788407 Problem Paranoid schizophrenia F20.0 confirmed 31193173 Problem Sciatica, right side M54.31 confirmed 13391764047968979 Problem Sciatica, left side M54.32 confirmed 74996372 Problem Unspecified psychosis F29 confirmed 75541406 chronic AH - does not meet criteria for schizophrenia or schizoaffective disorder at this time Problem Auditory hallucinations R44.0 confirmed 15982430 Problem History of posttraumatic stress disorder (PTSD) Z86.59 confirmed 859698505759495 Problem Slow transit constipation K59.01 confirmed 85411414 Problem care in third trimester Z34.93 conf irmed 184869568 Problem Maternal care for anti-D [Rh] antibodies, third trimester, fetus 1 O36.0131 confirmed Problem Amenorrhea N91.2 confirmed 79695055 Problem Third trimester Z34.93 confirmed 45249641 Problem Abnormality of gait R26.9 confirmed 72705156 Problem Irritable bowel syndrome with diarrhea K58.0 confirmed 758176519 Problem Previous section complicating O 34.219 confirmed 145192255 Problem care in first trimester Z34.91 conf [...] FOR REFERRAL No Information VITAL SIGNS Weight 177.3 lbs May, Blood pressure systolic 122 mmHg May, Blood pressure diastolic 70 mmHg May, MEDICATIONS Medication SIG (Take, Route, Frequency, Duration) Notes Start Da te End Date Status 27-1 MG 1 tablet Orally Once a day Active PROCEDURES No Information RESULTS No Results REASON FOR VISIT 2 week f/u MEDICAL (GENERAL) HISTORY Type Description [...] Information PLAN OF TREATMENT Next Appt Details 2 Weeks, 2 Weeks Reason: Provider Name:MERLY Lula THAD, 2022-04 01:30:00 PM, [address] [facility] [id number], [place], [address], Provider Name:JACKY SALDANA, 04-28 03:00:00 PM, [address] [facility], [id number], [place], [address], Provider Name:SONIA BLEVINS, 2022-04-12 8 08:20:00 AM, [address], [place], [address], Provider Name:JENNIFER NUÑEZ, 2022-05-06 0 9:20:00 AM, [address] [facility] [id number], [place], [address], Provider Name:LIZZETTE Isha MADONNA, 2022-06-02 10:00:00 AM, [address] [facility] [id number], [place], [address], Insurance Providers Payer Name Payer Address Payer Phone Insured Name Patient Relati onship to Insured Coverage Start Date Coverage End Date Subscriber Number Group Nu mber LEIDA [employer]etna [facility] [address] [address] [facility] [phone] Alla Rodriguez Self - patient is the insured 2018 [id number] MEDICATIONS ADMINISTERED Medication Instructions Date of Administration Dosage Rho D Immune Globulin Feb, 300 mcg RHOGAM FULL DOSE May, 300 mcg
--- OUTSIDE RECORDS SUMMARY | 2022-05-08 05:32 | XMS REPORT ---
Author Author [facility] Address Unknown Phone Unavailable Care Team Providers Care Repairer Kiln Car Name Role Phone FAM Kruger Unavailable PROBLEMS Type Condition ICD9-CM Code [id number] Code Onset Dates Condition S tatus W/U Status Risk SNOMED Code Notes Problem Cough, unspecified type R05.9 confirmed 39797291 Problem 22 weeks gestation of Z3A.22 confi rmed 66340821 Problem Vomiting, unspecified vomiting type, uns pecified whether nausea present R11.10 confirmed 983026190 Problem Adjustment reaction with anxiety and depression F43.23 confirmed 696810070 Problem Abnormal uterine bleeding (AUB) N93.9 confi rmed 66022478093745 Problem Schizoaffective disorder, unspecified type F25.9 confirmed 01796415 Problem Late menses N91.0 confirmed 63536602 Problem HSV (herpes simplex virus) anogenital infection A60.9 confirmed 693787408 Problem Mild intellectual disability F70 confirme d 43890778 Problem Paranoid schizophrenia F20.0 confirmed 27069878 Problem Paranoid schizophrenia F20.0 confirmed 95061812 Problem Sciatica, right side M54.31 confirmed 89733431547059562 Problem Sciatica, left side M54.32 confirmed 88486606 Problem Unspecified psychosis F29 confirmed 08574130 chronic AH - does not meet criteria for schizophrenia or schizoaffective disorder at this time Problem Auditory hallucinations R44.0 confirmed 35669648 Problem History of posttraumatic stress disorder (PTSD) Z86.59 confirmed 111933898680958 Problem Slow transit constipation K59.01 confirmed 77408468 Problem care in third trimester Z34.93 conf irmed 181128532 Problem Maternal care for anti-D [Rh] antibodies, third trimester, fetus 1 O36.0131 confirmed Problem Amenorrhea N91.2 confirmed 23777671 Problem Third trimester Z34.93 confirmed 80749737 Problem Abnormality of gait R26.9 confirmed 27212805 Problem Irritable bowel syndrome with diarrhea K58.0 confirmed 015597319 Problem Previous section complicating O 34.219 confirmed 905352816 Problem care in first trimester Z34.91 conf [...] FOR REFERRAL No Information VITAL SIGNS Weight 178.0 lbs Jun, Blood pressure systolic 118 mmHg Jun, Blood pressure diastolic 72 mmHg Jun, MEDICATIONS Medication SIG (Take, Route, Frequency, Duration) Notes Start Da te End Date Status 27-1 MG 1 tablet Orally Once a day Active PROCEDURES No Information RESULTS No Results REASON FOR VISIT ob visit MEDICAL (GENERAL) HISTORY Type Description Date Medical [...] PLAN OF TREATMENT Next Appt Details 1 Week Reason: Provider Name:MERLY ONEIL, 2022-04 01:30:00 PM, [address] [facility], [id number], [place], [address], Provider Name:JACKY SALDANA, 04-28 03:00:00 PM, [address] [facility], [id number], [place], [address], Provider Name:SONIA BLEVINS, 2022-04-12 8 08:20:00 AM, [address] , [place], [address], Provider Name:JENNIFER NUÑEZ, 2022-05-06 0 9:20:00 AM, [address] [facility], [id number], [place], [address], Provider Name:LIZZETTE Isha MADONNA, 2022-06-02 10:00:00 AM, [address] [facility], [id number], [place], [address], Insurance Providers Payer Name Payer Address Payer Phone Insured Name Patient Relati onship to Insured Coverage Start Date Coverage End Date Subscriber Number Group Nu mber LEIDA [employer]etna [facility] [address] [address] [facility] [id number] Alla Rodriguez Self - patient is the insured 2018 [id number] MEDICATIONS ADMINISTERED Medication Instructions Date of Administration Dosage Rho D Immune Globulin Feb, 300 mcg RHOGAM FULL DOSE May, 300 mcg
--- OUTSIDE RECORDS SUMMARY | 2022-05-08 05:32 | XMS REPORT ---
Author Author [facility] Address Unknown Phone Unavailable Care Team Providers Care Energy Engineer Name Role Phone FAM Kruger Unavailable PROBLEMS Type Condition ICD9-CM Code [id number] Code Onset Dates Condition S tatus W/U Status Risk SNOMED Code Notes Problem Cough, unspecified type R05.9 confirmed 78922777 Problem 22 weeks gestation of Z3A.22 confi rmed 16945741 Problem Vomiting, unspecified vomiting type, uns pecified whether nausea present R11.10 confirmed 785865323 Problem Adjustment reaction with anxiety and depression F43.23 confirmed 353237178 Problem Abnormal uterine bleeding (AUB) N93.9 confi rmed [id number] Problem Schizoaffective disorder, unspecified type F25.9 confirmed 27686122 Problem Late menses N91.0 confirmed 71514814 Problem HSV (herpes simplex virus) anogenital infection A60.9 confirmed 875015200 Problem Mild intellectual disability F70 confirme d 86079456 Problem Paranoid schizophrenia F20.0 confirmed 15123921 Problem Paranoid schizophrenia F20.0 confirmed 31083020 Problem Sciatica, right side M54.31 confirmed 62110952031633434 Problem Sciatica, left side M54.32 confirmed 73931905 Problem Unspecified psychosis F29 confirmed 89280951 chronic AH - does not meet criteria for schizophrenia or schizoaffective disorder at this time Problem Auditory hallucinations R44.0 confirmed 37914837 Problem History of posttraumatic stress disorder (PTSD) Z86.59 confirmed 803073914824737 Problem Slow transit constipation K59.01 confirmed 91302690 Problem care in third trimester Z34.93 conf irmed 645052376 Problem Maternal care for anti-D [Rh] antibodies, third trimester, fetus 1 O36.0131 confirmed Problem Amenorrhea N91.2 confirmed 90896215 Problem Third trimester Z34.93 confirmed 75476715 Problem Abnormality of gait R26.9 confirmed 75975842 Problem Irritable bowel syndrome with diarrhea K58.0 confirmed 206484532 Problem Previous section complicating O 34.219 confirmed 120992541 Problem care in first trimester Z34.91 conf [...] Name:MERLY ONEIL, 2022-04 01:30:00 PM, [address] [facility], [id number], [place], [address], Provider Name:AJCKY SALDANA, 04-28 03:00:00 PM, [address] [facility], [id number], [place], [address], Provider Name:SONIAEliseo BLEVINS, 2022-04-12 8 08:20:00 AM, [address] [facility], [place], [address], Provider Name:JENNIFER NUÑEZ, 2022-05-06 0 9:20:00 AM, [address] [facility], [id number], [place], [address], Provider Name:LIZZETTE PEACOCK, 2022-06-02 10:00:00 AM, [address] [facility], [id number], [place], [address], Insurance Providers Payer Name Payer Address Payer Phone Insured Name Patient Relati onship to Insured Coverage Start Date Coverage End Date Subscriber Number Group Nu mber LEIDA Aetna [facility] [address] [facility] [address] Alla Rodriguez Self - patient is the insured 2018 [id number] MEDICATIONS ADMINISTERED Medication Instructions Date of Administration Dosage Rho D Immune Globulin Feb, 300 mcg RHOGAM FULL DOSE May, 300 mcg
--- OUTSIDE RECORDS SUMMARY | 2022-05-08 05:32 | XMS REPORT ---
Author Author [facility] Address Unknown Phone Unavailable Care Team Providers Care English Drawer Name Role Phone SONIA BLEVINS Unavailable PROBLEMS Type Condition ICD9-CM Code KTY96-UI Code Onset Dates Condition S tatus W/U Status Risk SNOMED Code Notes Problem Cough, unspecified type R05.9 confirmed 58501198 Problem 22 weeks gestation of Z3A.22 confi rmed 64060334 Problem Vomiting, unspecified vomiting type, uns pecified whether nausea present R11.10 confirmed 561788565 Problem Adjustment reaction with anxiety and depression F43.23 confirmed 289525735 Problem Abnormal uterine bleeding (AUB) N93.9 confi rmed 74873329893176 Problem Schizoaffective disorder, unspecified type F25.9 confirmed 04157630 Problem Late menses N91.0 confirmed 99347753 Problem HSV (herpes simplex virus) anogenital infection A60.9 confirmed 536147052 Problem Mild intellectual disability F70 confirme d 65061071 Problem Paranoid schizophrenia F20.0 confirmed 86118630 Problem Paranoid schizophrenia F20.0 confirmed 52971293 Problem Sciatica, right side M54.31 confirmed 63997966874206400 Problem Sciatica, left side M54.32 confirmed 91240074 Problem Unspecified psychosis F29 confirmed 76600910 chronic AH - does not meet criteria for schizophrenia or schizoaffective disorder at this time Problem Auditory hallucinations R44.0 confirmed 03367984 Problem History of posttraumatic stress disorder (PTSD) Z86.59 confirmed 785443916595539 Problem Slow transit constipation K59.01 confirmed 89408716 Problem care in third trimester Z34.93 conf irmed 262356278 Problem Maternal care for anti-D [Rh] antibodies, third trimester, fetus 1 O36.0131 confirmed Problem Amenorrhea N91.2 confirmed 04982301 Problem Third trimester Z34.93 confirmed 55844137 Problem Abnormality of gait R26.9 confirmed 76226774 Problem Irritable bowel syndrome with diarrhea K58.0 confirmed 705252348 Problem Previous section complicating O 34.219 confirmed 723580981 Problem care in first trimester Z34.91 conf [...] Information RESULTS No Results REASON FOR VISIT No Information MEDICAL (GENERAL) HISTORY Type Description Date Medical [...] Name:MERLY ONEIL, 2022-04 01:30:00 PM, [address] [facility], [id number], [place], [address], Provider Name:JACKY SALDANA, 04-28 03:00:00 PM, [address] [facility], [id number], [place], [address], Provider Name:SONIA BLEVINS, 2022-04-12 8 08:20:00 AM, [address] [facility], [place], [address], Provider Name:JENNIFER NUÑEZ, 2022-05-06 0 9:20:00 AM, [address] [facility], [id number], [place], [address], Provider Name:LIZZETTE PEACOCK, 2022-06-02 10:00:00 AM, [address] [facility], [id number], [place], [address], Insurance Providers Payer Name Payer Address Payer Phone Insured Name Patient Relati onship to Insured Coverage Start Date Coverage End Date Subscriber Number Group Nu mber LEIDA Aetna [facility] [address] [address] [facility] [address] Alla Rodriguez Self - patient is the insured 2018 [id number] MEDICATIONS ADMINISTERED Medication Instructions Date of Administration Dosage Rho D Immune Globulin Feb, 300 mcg RHOGAM FULL DOSE May, 300 mcg
--- OUTSIDE RECORDS SUMMARY | 2022-05-08 05:32 | XMS REPORT ---
Author Author [facility] Address Unknown Phone Unavailable Care Team Providers Care Senior Product Engineer Name Role Phone StephyNORAFRANNIERAUL Unavailable PROBLEMS Type Condition ICD9-CM Code NDV46-ZG Code Onset Dates Condition S tatus W/U Status Risk SNOMED Code Notes Problem Cough, unspecified type R05.9 confirmed 83891275 Problem 22 weeks gestation of Z3A.22 confi rmed 49530348 Problem Vomiting, unspecified vomiting type, uns pecified whether nausea present R11.10 confirmed 469607491 Problem Adjustment reaction with anxiety and depression F43.23 confirmed 429177841 Problem Abnormal uterine bleeding (AUB) N93.9 confi rmed 56043210947608 Problem Schizoaffective disorder, unspecified type F25.9 confirmed 02622691 Problem Late menses N91.0 confirmed 63896050 Problem HSV (herpes simplex virus) anogenital infection A60.9 confirmed 382801324 Problem Mild intellectual disability F70 confirme d 49422809 Problem Paranoid schizophrenia F20.0 confirmed 87896634 Problem Paranoid schizophrenia F20.0 confirmed 91003300 Problem Sciatica, right side M54.31 confirmed 76136895478528343 Problem Sciatica, left side M54.32 confirmed 60300012 Problem Unspecified psychosis F29 confirmed 99197110 chronic AH - does not meet criteria for schizophrenia or schizoaffective disorder at this time Problem Auditory hallucinations R44.0 confirmed 82613241 Problem History of posttraumatic stress disorder (PTSD) Z86.59 confirmed 696307768786072 Problem Slow transit constipation K59.01 confirmed 01755462 Problem care in third trimester Z34.93 conf irmed 221033119 Problem Maternal care for anti-D [Rh] antibodies, third trimester, fetus 1 O36.0131 confirmed Problem Amenorrhea N91.2 confirmed 55359457 Problem Third trimester Z34.93 confirmed 98735690 Problem Abnormality of gait R26.9 confirmed 31696548 Problem Irritable bowel syndrome with diarrhea K58.0 confirmed 615145642 Problem Previous section complicating O 34.219 confirmed 907849541 Problem care in first trimester Z34.91 conf irm ALLERGIES No Known Allergies ENCOUNTERS from 1995 to 2022-04-09 Encounter Location Date Provider Diagnosis [facility] [address] [facility] [id number] [place] [address] Apr, RAUL Gerber IMMUNIZATIONS Vaccine Route Administration Date Status PRIVATE TDAP (BOOSTRIX) IM Intramuscular May 25, 2019 Adminis tered PRIVATE TDAP (BOOSTRIX) IM Intramuscular Mar 03, 2022 Adminis tered tdap (history) Unknown July 26, 2019 Administered SOCIAL HISTORY Sex Assigned At : Social [...] Information RESULTS No Results REASON FOR VISIT FYI only MEDICAL (GENERAL) HISTORY Type Description Date Medical [...] PLAN OF TREATMENT Next Appt Details Provider Name:JULIO BOND, 01:20:00 PM, [address] [facility], [place], [address], Provider Name:JACKY SALDANA, 04-28 03:00:00 PM, [address] [facility], [id number], [place], [address], Provider Name:JENNIFER NUÑEZ, 2022-05-06 0 9:20:00 AM, [address] [facility], [id number], [place], [address], Provider Name:LIZZETTE PEACOCK, 2022-06-02 10:00:00 AM, [address] [facility], [id number], [place], [address], Insurance Providers Payer Name Payer Address Payer Phone Insured Name Patient Relati onship to Insured Coverage Start Date Coverage End Date Subscriber Number Group Nu mber LEIDA [facility] [address] [address] [facility] [address] Alla Rodriguez Self - patient is the insured 2018 [id number] MEDICATIONS ADMINISTERED Medication Instructions Date of Administration Dosage RHOGAM FULL DOSE May, 300 mcg Rho D Immune Globulin Feb, 300 mcg
--- OUTSIDE RECORDS SUMMARY | 2022-05-08 05:32 | XMS REPORT ---
Author Author [facility] Address Unknown Phone Unavailable Care Team Providers Care Bell Captain Name Role Phone FAM Kruger Unavailable PROBLEMS Type Condition ICD9-CM Code PHJ06-KC Code Onset Dates Condition S tatus W/U Status Risk SNOMED Code Notes Problem Cough, unspecified type R05.9 confirmed 00360715 Problem 22 weeks gestation of Z3A.22 confi rmed 07494815 Problem Vomiting, unspecified vomiting type, uns pecified whether nausea present R11.10 confirmed 596318795 Problem Adjustment reaction with anxiety and depression F43.23 confirmed 020182209 Problem Abnormal uterine bleeding (AUB) N93.9 confi rmed 39439819127871 Problem Schizoaffective disorder, unspecified type F25.9 confirmed 79770675 Problem Late menses N91.0 confirmed 94191132 Problem HSV (herpes simplex virus) anogenital infection A60.9 confirmed 054287473 Problem Mild intellectual disability F70 confirme d 78855223 Problem Paranoid schizophrenia F20.0 confirmed 25088876 Problem Paranoid schizophrenia F20.0 confirmed 73211821 Problem Sciatica, right side M54.31 confirmed 93530053740382229 Problem Sciatica, left side M54.32 confirmed 79571464 Problem Unspecified psychosis F29 confirmed 49000903 chronic AH - does not meet criteria for schizophrenia or schizoaffective disorder at this time Problem Auditory hallucinations R44.0 confirmed 65861368 Problem History of posttraumatic stress disorder (PTSD) Z86.59 confirmed 579475610801470 Problem Slow transit constipation K59.01 confirmed 52913182 Problem care in third trimester Z34.93 conf irmed 469381158 Problem Maternal care for anti-D [Rh] antibodies, third trimester, fetus 1 O36.0131 confirmed Problem Amenorrhea N91.2 confirmed 03172391 Problem Third trimester Z34.93 confirmed 23916920 Problem Abnormality of gait R26.9 confirmed 21950551 Problem Irritable bowel syndrome with diarrhea K58.0 confirmed 356586079 Problem Previous section complicating O 34.219 confirmed 919542611 Problem care in first trimester Z34.91 conf [...] No Results REASON FOR VISIT OB f/u Ob dip MEDICAL (GENERAL) HISTORY Type Description Date Medical [...] Notes Treatment Notes Treatm ent Clinical Notes Apr, Second trimester (ICD-10 - Z34 .92) PLAN OF TREATMENT Next Appt Details Provider Name:MERLY ONEIL, 2022-04 01:30:00 PM, [address] [facility], [id number], [place], [address], Provider Name:JACKY SALDANA, 04-28 03:00:00 PM, [address] [facility], [id number], [place], [address], Provider Name:SONIA BLEVINS, 2022-04-12 8 08:20:00 AM, [address], [place], [address], Provider Name:JENNIFER NUÑEZ, 2022-05-06 0 9:20:00 AM, [address] [facility] [address], [id number], [place], [address], Provider Name:LIZZETTE Vieira MADONNA, 2022-06-02 10:00:00 AM, [address] [facility] [address], [id number], [place], [address], Insurance Providers Payer Name Payer Address Payer Phone Insured Name Patient Relati onship to Insured Coverage Start Date Coverage End Date Subscriber Number Group Nu mber LEIDA Aetna [facility] [address] [address] [facility] [address] Alla Rodriguez Self - patient is the insured 2018 [id number] MEDICATIONS ADMINISTERED Medication Instructions Date of Administration Dosage Rho D Immune Globulin Feb, 300 mcg RHOGAM FULL DOSE May, 300 mcg
--- OUTSIDE RECORDS SUMMARY | 2022-05-08 05:32 | XMS REPORT ---
Author Author [facility] Address Unknown Phone Unavailable Care Team Providers Care Ceramic Sprayer Name Role Phone AUBREY Duarte Unavailable PROBLEMS Type Condition ICD9-CM Code GTP69-DD Code Onset Dates Condition S tatus W/U Status Risk SNOMED Code Notes Problem Cough, unspecified type R05.9 confirmed 49064142 Problem 22 weeks gestation of Z3A.22 confi rmed 32464708 Problem Vomiting, unspecified vomiting type, uns pecified whether nausea present R11.10 confirmed 993892921 Problem Adjustment reaction with anxiety and depression F43.23 confirmed 130015376 Problem Abnormal uterine bleeding (AUB) N93.9 confi rmed 35382854236195 Problem Schizoaffective disorder, unspecified type F25.9 confirmed 77173691 Problem Late menses N91.0 confirmed 56089950 Problem HSV (herpes simplex virus) anogenital infection A60.9 confirmed 884282730 Problem Mild intellectual disability F70 confirme d 71421300 Problem Paranoid schizophrenia F20.0 confirmed 89465021 Problem Paranoid schizophrenia F20.0 confirmed 57197563 Problem Sciatica, right side M54.31 confirmed 42599513516163563 Problem Sciatica, left side M54.32 confirmed 14438536 Problem Unspecified psychosis F29 confirmed 75550765 chronic AH - does not meet criteria for schizophrenia or schizoaffective disorder at this time Problem Auditory hallucinations R44.0 confirmed 97696065 Problem History of posttraumatic stress disorder (PTSD) Z86.59 confirmed 382298528825177 Problem Slow transit constipation K59.01 confirmed 10669921 Problem care in third trimester Z34.93 conf irmed 823494776 Problem Maternal care for anti-D [Rh] antibodies, third trimester, fetus 1 O36.0131 confirmed Problem Amenorrhea N91.2 confirmed 92992235 Problem Third trimester Z34.93 confirmed 65788249 Problem Abnormality of gait R26.9 confirmed 09186265 Problem Irritable bowel syndrome with diarrhea K58.0 confirmed 792795045 Problem Previous section complicating O 34.219 confirmed 655909974 Problem care in first trimester Z34.91 conf [...] OF TREATMENT Next Appt Details Provider Name:MERLY OENIL, 2022-04 01:30:00 PM, [address] [facility], [id number], [place], [address], Provider Name:JACKY SALDANA, 04-28 03:00:00 PM, [address] [facility], [id number], [place], [address], Provider Name:SONIAEliseo BLEVINS, 2022-04-12 8 08:20:00 AM, [address] [facility], [place], [address], Provider Name:JENNIFER NUÑEZ, 2022-05-06 0 9:20:00 AM, [address] [facility], [id number], [place], [address], Provider Name:LIZZETTE PEACOCK, 2022-06-02 10:00:00 AM, [address] [facility], [id number], [place], [address], Insurance Providers Payer Name Payer Address Payer Phone Insured Name Patient Relati onship to Insured Coverage Start Date Coverage End Date Subscriber Number Group Nu mber LEIDA Aetna [facility] [address] [address] [facility] [phone] Alla Rodriguez Self - patient is the insured 2018 [id number] MEDICATIONS ADMINISTERED Medication Instructions Date of Administration Dosage Rho D Immune Globulin Feb, 300 mcg RHOGAM FULL DOSE May, 300 mcg
--- OUTSIDE RECORDS SUMMARY | 2022-05-08 05:32 | XMS REPORT ---
Author Author [facility] Address Unknown Phone Unavailable Care Team Providers Care Tape Weaver Name Role Phone SONIA BLEVINS Unavailable PROBLEMS Type Condition ICD9-CM Code AQN70-ZX Code Onset Dates Condition S tatus W/U Status Risk SNOMED Code Notes Problem Cough, unspecified type R05.9 confirmed 03845613 Problem 22 weeks gestation of Z3A.22 confi rmed 47511604 Problem Vomiting, unspecified vomiting type, uns pecified whether nausea present R11.10 confirmed 787523648 Problem Adjustment reaction with anxiety and depression F43.23 confirmed 163026757 Problem Abnormal uterine bleeding (AUB) N93.9 confi rmed 57681918465827 Problem Schizoaffective disorder, unspecified type F25.9 confirmed 26815847 Problem Late menses N91.0 confirmed 73107629 Problem HSV (herpes simplex virus) anogenital infection A60.9 confirmed 195122992 Problem Mild intellectual disability F70 confirme d 61071396 Problem Paranoid schizophrenia F20.0 confirmed 30815416 Problem Paranoid schizophrenia F20.0 confirmed 09688013 Problem Sciatica, right side M54.31 confirmed 89489897735689710 Problem Sciatica, left side M54.32 confirmed 04212350 Problem Unspecified psychosis F29 confirmed 64291798 chronic AH - does not meet criteria for schizophrenia or schizoaffective disorder at this time Problem Auditory hallucinations R44.0 confirmed 97668037 Problem History of posttraumatic stress disorder (PTSD) Z86.59 confirmed 559984137049609 Problem Slow transit constipation K59.01 confirmed 15137441 Problem care in third trimester Z34.93 conf irmed 184652847 Problem Maternal care for anti-D [Rh] antibodies, third trimester, fetus 1 O36.0131 confirmed Problem Amenorrhea N91.2 confirmed 75709950 Problem Third trimester Z34.93 confirmed 59698013 Problem Abnormality of gait R26.9 confirmed 97766430 Problem Irritable bowel syndrome with diarrhea K58.0 confirmed 808113734 Problem Previous section complicating O 34.219 confirmed 614876930 Problem care in first trimester Z34.91 conf [...] Results REASON FOR VISIT 1 week f/u - ob dip MEDICAL (GENERAL) HISTORY Type Description Date [...] Notes Treatment Notes Treatm ent Clinical Notes Jul, Third trimester (ICD-10 - Z34. 93) PLAN OF TREATMENT Next Appt Details Provider Name:MERLY ONEIL, 2022-04 01:30:00 PM, [address] [facility], [id number], [place], [address], Provider Name:JACKY SALDANA, 04-28 03:00:00 PM, [address] [facility], [id number], [place], [address], Provider Name:SONIA BLEVINS, 2022-04-12 8 08:20:00 AM, [address] , [place], [address], Provider Name:JENNIFER NUÑEZ, 2022-05-06 0 9:20:00 AM, [address] [facility], [id number], [place], [address], Provider Name:LIZZETTE Vieira MADONNA, 2022-06-02 10:00:00 AM, [address] [facility], [id number], [place], [address], Insurance Providers Payer Name Payer Address Payer Phone Insured Name Patient Relati onship to Insured Coverage Start Date Coverage End Date Subscriber Number Group Nu mber LEIDA Aetna [facility] [address] [address] [facility] [phone] Alla Rodriguez Self - patient is the insured 2018 [id number] MEDICATIONS ADMINISTERED Medication Instructions Date of Administration Dosage Rho D Immune Globulin Feb, 300 mcg RHOGAM FULL DOSE May, 300 mcg
--- OUTSIDE RECORDS SUMMARY | 2022-05-08 05:32 | XMS REPORT ---
Author Author [facility] Address Unknown Phone Unavailable Care Team Providers Care Electrical Research Engineer Name Role Phone SONIA BLEVINS Unavailable PROBLEMS Type Condition ICD9-CM Code BMM52-XB Code Onset Dates Condition S tatus W/U Status Risk SNOMED Code Notes Problem Cough, unspecified type R05.9 confirmed 16264853 Problem 22 weeks gestation of Z3A.22 confi rmed 63331688 Problem Vomiting, unspecified vomiting type, uns pecified whether nausea present R11.10 confirmed 932745275 Problem Adjustment reaction with anxiety and depression F43.23 confirmed 873119914 Problem Abnormal uterine bleeding (AUB) N93.9 confi rmed 40026670126960 Problem Schizoaffective disorder, unspecified type F25.9 confirmed 73354593 Problem Late menses N91.0 confirmed 15092212 Problem HSV (herpes simplex virus) anogenital infection A60.9 confirmed 133349145 Problem Mild intellectual disability F70 confirme d 80588981 Problem Paranoid schizophrenia F20.0 confirmed 85859450 Problem Paranoid schizophrenia F20.0 confirmed 78261273 Problem Sciatica, right side M54.31 confirmed 91046516107866514 Problem Sciatica, left side M54.32 confirmed 13656438 Problem Unspecified psychosis F29 confirmed 93704790 chronic AH - does not meet criteria for schizophrenia or schizoaffective disorder at this time Problem Auditory hallucinations R44.0 confirmed 70479649 Problem History of posttraumatic stress disorder (PTSD) Z86.59 confirmed 028859505081844 Problem Slow transit constipation K59.01 confirmed 91800591 Problem care in third trimester Z34.93 conf irmed 699470510 Problem Maternal care for anti-D [Rh] antibodies, third trimester, fetus 1 O36.0131 confirmed Problem Amenorrhea N91.2 confirmed 52176333 Problem Third trimester Z34.93 confirmed 26971841 Problem Abnormality of gait R26.9 confirmed 96571877 Problem Irritable bowel syndrome with diarrhea K58.0 confirmed 932254867 Problem Previous section complicating O 34.219 confirmed 917465794 Problem care in first trimester Z34.91 conf [...] RESULTS No Results REASON FOR VISIT OB f/u-abdominal pain MEDICAL (GENERAL) HISTORY Type Description Date Medical [...] Name:MERLY ONEIL, 2022-04 01:30:00 PM, [address] [facility], [id number], [place], [address], Provider Name:JACKY SALDANA, 04-28 03:00:00 PM, [address] [facility], [id number], [place], [address], Provider Name:SONIA BLEVINS, 2022-04-12 8 08:20:00 AM, [address] [facility], [place], [address], Provider Name:JENNIFER NUÑEZ, 2022-05-06 0 9:20:00 AM, [address] [facility], [id number], [place], [address], Provider Name:LIZZETTE PEACOCK, 2022-06-02 10:00:00 AM, [address] [facility], [id number], [place], [address], Insurance Providers Payer Name Payer Address Payer Phone Insured Name Patient Relati onship to Insured Coverage Start Date Coverage End Date Subscriber Number Group Nu mber LEIDA [employer]etna [facility] [address] [address] [facility] [address] Alla Rodriguez Self - patient is the insured 2018 [id number] MEDICATIONS ADMINISTERED Medication Instructions Date of Administration Dosage Rho D Immune Globulin Feb, 300 mcg RHOGAM FULL DOSE May, 300 mcg
--- OUTSIDE RECORDS SUMMARY | 2022-05-08 05:32 | XMS REPORT ---
Author Author [facility] Address Unknown Phone Unavailable Care Team Providers Care Algebra Teacher Name Role Phone FAM Kruger Unavailable PROBLEMS Type Condition ICD9-CM Code ZZO23-GR Code Onset Dates Condition S tatus W/U Status Risk SNOMED Code Notes Problem Cough, unspecified type R05.9 confirmed 96129882 Problem 22 weeks gestation of Z3A.22 confi rmed [id number] Problem Vomiting, unspecified vomiting type, uns pecified whether nausea present R11.10 confirmed 551609527 Problem Adjustment reaction with anxiety and depression F43.23 confirmed 762208127 Problem Abnormal uterine bleeding (AUB) N93.9 confi rmed [id number] Problem Schizoaffective disorder, unspecified type F25.9 confirmed 65149442 Problem Late menses N91.0 confirmed 50125633 Problem HSV (herpes simplex virus) anogenital infection A60.9 confirmed 702922495 Problem Mild intellectual disability F70 confirme d 77230061 Problem Paranoid schizophrenia F20.0 confirmed 82250892 Problem Paranoid schizophrenia F20.0 confirmed 38543249 Problem Sciatica, right side M54.31 confirmed 32893281111950815 Problem Sciatica, left side M54.32 confirmed 41456626 Problem Unspecified psychosis F29 confirmed 88148383 chronic AH - does not meet criteria for schizophrenia or schizoaffective disorder at this time Problem Auditory hallucinations R44.0 confirmed 07132068 Problem History of posttraumatic stress disorder (PTSD) Z86.59 confirmed [id number] Problem Slow transit constipation K59.01 confirmed 90179261 Problem care in third trimester Z34.93 conf irmed 892767244 Problem Maternal care for anti-D [Rh] antibodies, third trimester, fetus 1 O36.0131 confirmed Problem Amenorrhea N91.2 confirmed 01707816 Problem Third trimester Z34.93 confirmed 42259204 Problem Abnormality of gait R26.9 confirmed 06440954 Problem Irritable bowel syndrome with diarrhea K58.0 confirmed 151691991 Problem Previous section complicating O 34.219 confirmed 113061484 Problem care in first trimester Z34.91 conf [...] Notes Treatment Notes Treatm ent Clinical Notes Jun, Third trimester (ICD-10 - Z34. 93) PLAN OF TREATMENT Next Appt Details Provider Name:MERLY ONEIL, 2022-04 01:30:00 PM, [address] [facility], [id number], [place], [address], Provider Name:JACKY SALDANA, 04-28 03:00:00 PM, [address] [facility], [id number], [place], [address], Provider Name:SONIA BLEVINS, 2022-04-12 8 08:20:00 AM, [address] , [place], [address], Provider Name:JENNIFER JOAQUIN, 2022-05-06 0 9:20:00 AM, [address] [facility], [id number], [place], [address], Provider Name:LIZZETTE PEACOCK, 2022-06-02 10:00:00 AM, [address] [facility], [id number], [place], [address], Insurance Providers Payer Name Payer Address Payer Phone Insured Name Patient Relati onship to Insured Coverage Start Date Coverage End Date Subscriber Number Group Nu mber LEIDA [employer] [facility] [address] [address] [facility] [phone] Alla Rodriguez Self - patient is the insured 2018 [id number] MEDICATIONS ADMINISTERED Medication Instructions Date of Administration Dosage Rho D Immune Globulin Feb, 300 mcg RHOGAM FULL DOSE May, 300 mcg
--- OUTSIDE RECORDS SUMMARY | 2022-05-08 05:32 | XMS REPORT ---
Author Author [facility] Address Unknown Phone Unavailable Care Team Providers Care Smooth Stucco Resurfacer Name Role Phone SONIA BLEVINS Unavailable PROBLEMS Type Condition ICD9-CM Code PGI18-BO Code Onset Dates Condition S tatus W/U Status Risk SNOMED Code Notes Problem Cough, unspecified type R05.9 confirmed 87514780 Problem 22 weeks gestation of Z3A.22 confi rmed 81017545 Problem Vomiting, unspecified vomiting type, uns pecified whether nausea present R11.10 confirmed 189212049 Problem Adjustment reaction with anxiety and depression F43.23 confirmed 870099729 Problem Abnormal uterine bleeding (AUB) N93.9 confi rmed [id number] Problem Schizoaffective disorder, unspecified type F25.9 confirmed 08855473 Problem Late menses N91.0 confirmed 79188474 Problem HSV (herpes simplex virus) anogenital infection A60.9 confirmed 414334110 Problem Mild intellectual disability F70 confirme d 98942272 Problem Paranoid schizophrenia F20.0 confirmed 36369367 Problem Paranoid schizophrenia F20.0 confirmed 15787099 Problem Sciatica, right side M54.31 confirmed 68478475497271605 Problem Sciatica, left side M54.32 confirmed 22167412 Problem Unspecified psychosis F29 confirmed 15905797 chronic AH - does not meet criteria for schizophrenia or schizoaffective disorder at this time Problem Auditory hallucinations R44.0 confirmed 02848781 Problem History of posttraumatic stress disorder (PTSD) Z86.59 confirmed 968136893430511 Problem Slow transit constipation K59.01 confirmed 18566243 Problem care in third trimester Z34.93 conf irmed 107071073 Problem Maternal care for anti-D [Rh] antibodies, third trimester, fetus 1 O36.0131 confirmed Problem Amenorrhea N91.2 confirmed 16362077 Problem Third trimester Z34.93 confirmed 87433432 Problem Abnormality of gait R26.9 confirmed 52110060 Problem Irritable bowel syndrome with diarrhea K58.0 confirmed 424954374 Problem Previous section complicating O 34.219 confirmed 583461974 Problem care in first trimester Z34.91 conf [...] REASON FOR REFERRAL No Information VITAL SIGNS Blood pressure systolic 115 mmHg Jun, Blood pressure diastolic 60 mmHg Jun, MEDICATIONS Medication SIG (Take, Route, Frequency, Duration) Notes Start Da te End Date Status 27-1 MG 1 tablet Orally Once a day Active PROCEDURES No Information RESULTS No Results REASON FOR VISIT Acute-Possible UTI. MEDICAL (GENERAL) HISTORY Type Description Date Medical [...] Name:MERLY ONEIL, 2022-04 01:30:00 PM, [address] [facility], [id number], [place], [address], Provider Name:JACKY SALDANA, 04-28 03:00:00 PM, [address] [facility], [id number], [place], [address], Provider Name:SONIA BLEVINS, 2022-04-12 8 08:20:00 AM, [address] , [place], [address], Provider Name:JENNIFER NUÑEZ, 2022-05-06 0 9:20:00 AM, [address] [facility], [id number], [place], [address], Provider Name:LIZZETTE PEACOCK, 2022-06-02 10:00:00 AM, [address] [facility], [id number], [place], [address], Insurance Providers Payer Name Payer Address Payer Phone Insured Name Patient Relati onship to Insured Coverage Start Date Coverage End Date Subscriber Number Group Nu mber LEIDA [employer] [facility] [address] [address] [facility] [phone] Alla Rodriguez Self - patient is the insured 2018 [id number] MEDICATIONS ADMINISTERED Medication Instructions Date of Administration Dosage Rho D Immune Globulin Feb, 300 mcg RHOGAM FULL DOSE May, 300 mcg
[2022-05-08] MEDS ORDERED: FAMOTIDINE 20MG/2ML IV (PEPCID) IV ONE (05:45)
[2022-05-08] MEDS ORDERED: CATHETER FLUSH 10 ML SYR IV PRN (05:45)
[2022-05-08] MEDS ORDERED: ceFAZolin INJECTION 2,000 MG in NS (IVPB) 50 ML IV ONE (05:45)
[2022-05-08] MEDS ORDERED: LACTATED RINGERS 1,000 ML IV PRN ×2 (05:45)
[2022-05-08] MEDS ORDERED: CITRIC ACID/SOB CIT (BICITRA) 30 ML UDC PO ONE (05:45)
[2022-05-08] MEDS ORDERED: METOCLOPRAMIDE INJ 10 MG/2 ML (REGLAN) IV ONE (05:45)
[2022-05-08] MEDS ORDERED: ceFAZolin INJECTION 2,000 MG ONE (05:58)
[2022-05-08] MEDS ORDERED: NS (IVPB) 50 ML ONE (05:59)
[2022-05-08 06:18] LABS: BASOPHILS % (AUTO) 0 % (0-10); EOSINOPHILS # (AUTO) 0.1 10^3/uL (0.0-0.3); EOSINOPHILS % (AUTO) 1 % (0-10); HEMATOCRIT 31 % (35-52); HEMOGLOBIN 9.7 g/dL (11.5-16.0); LYMPHOCYTES # (AUTO) 1.9 10^3/uL (1.0-4.0); LYMPHOCYTES % (AUTO) 24 % (12-44); MEAN CORPUSCULAR HEMOGLOBIN 25 pg (25-34); MEAN CORPUSCULAR HGB CONC 31 g/dL (32-36); MEAN CORPUSCULAR VOLUME 81 fL (80-99); MEAN PLATELET VOLUME 9.3 fL (9.0-12.2); MONOCYTES # (AUTO) 0.7 10^3/uL (0.0-1.0); MONOCYTES % (AUTO) 9 % (0-12); NEUTROPHILS # (AUTO) 5.3 10^3/uL (1.8-7.8); NEUTROPHILS % (AUTO) 65 % (42-75); PLATELET COUNT 252 10^3/uL (130-400); WHITE BLOOD COUNT 8.1 10^3/uL (4.3-11.0)
[2022-05-08] MEDS ORDERED: OXYTOCIN PRE-MIX DRIP 1,000 ML IV ONE (07:03)
[2022-05-08] MEDS ORDERED: ONDANSETRON 4 MG/2 ML (SDV) Z0FRAN ONE (07:03)
[2022-05-08] MEDS ORDERED: fentaNYL INJ 100 MCG/2 ML AMP ONE (07:03)
--- NOTE | 2022-05-08 07:21 | History & Physical-OB ---
OB - Chief Complaint & HPI Date/Time Date of Admission: Date of Admission: May 08, 2022 at 05:29 Date seen by a Provider: May 08, 2022 Time Seen by a Provider: 07:11 Chief Complaint/History OB-Reason for Admission/Chief: Section Hx : 5 Hx Para: 4 Expected Date of Delivery: May 15, 2022 Gestational Age in Weeks: 39 Gestational Age in Days: 0 Indication for : desires repeat Admission Nurse Assessment Rev: Yes Allergies and Home Medications Allergies Coded Allergies: No Known Drug Allergies (Unverified , 04/30/22) Patient Home Medication List Home Medication List Reviewed: Yes Vit W-Ca,Fe,FA(<1 mg) ( Formula) 28 Mg Iron-800 Mcg Tablet, 1 EACH PO DAILY, (Reported) Entered as Reported by: PATRICE LONDONO on 02/07/22 0455 Last Action: Reviewed Discontinued Medications Ondansetron (Ondansetron Odt) 4 Mg Tab.rapdis, 4 MG SL Q4H PRN for NAUSEA/VOMITING, (Reported) Discontinued Reason: No Longer Taking Entered as Reported by: NEDA SIEGEL on 04/30/22 1145 Last Action: Discontinued Oseltamivir Phosphate (Oseltamivir Phosphate) Unknown Strength Capsule, Unknown Dose PO, (Reported) Discontinued Reason: No Longer Taking Entered as Reported by: NEDA SIEGEL on 04/30/22 1145 Last Action: Discontinued OB - History Hx of Present Care: Yes Ultrasounds: Normal mid trimester US Obstetrical Complications: None Medical Complications: None Obstetrical History Hx Termination: No Hx Multiple Gestation: No Hx Stillbirth: No Hx Complication: No Hx Induced Hypertens: No Hx Maternal Gestational Diabet: No Delivery History Hx Dystocia: No Hx Large For Gestational Age I: No Hx Small for Gestational Age I: No Hx Section: No Hx Vaginal Delivery Post C-Sec: No Hx Blood Disorders: No Adverse Rxn to Tranfusion: No Patient Past Medical History PMHx: Schizophrenia Cerebral palsy Depression Genital herpes SurgHx: Left finger Social History/Family History 2nd Hand Smoke Exposure: No Immunizations Influenza Vaccine Up-to-Date: No; Not Current Hepatitis A: Yes Hepatitis B: Yes Tetanus Booster (TDap): Less than 5yrs OB - Admission Exam Physical Exam Vitals: Vital Signs 05/08/22 05:45 Temp 36.6 Pulse 123 Resp 20 Pulse Ox 99 O2 Delivery Room Air HEENT: NCAT Heart: Rhythm Normal Lungs: Clear Abdomen: Gravid Heart Rate: 140's Accelerations: Accelerations Present Decelerations: No Decelerations Short Term Variability: Present Retirement Variability: Average (6-25) Contractions on Admission: >10 Minutes Apart Labs Laboratory Tests Test 05/08/22 06:00 Range/Units White Blood Count 8.1 4.3-11.0 10^3/uL Red Blood Count 3.83 3.80-5.11 10^6/uL Hemoglobin 9.7 L 11.5-16.0 g/dL Hematocrit 31 L 35-52 % Mean Corpuscular Volume 81 80-99 fL Mean Corpuscular Hemoglobin 25 25-34 pg Mean Corpuscular Hemoglobin Concent 31 L 32-36 g/dL Red Cell Distribution Width 15.5 H 10.0-14.5 % Platelet Count 252 130-400 10^3/uL Mean Platelet Volume 9.3 9.0-12.2 fL Immature Granulocyte % (Auto) 1 % Neutrophils (%) (Auto) 65 42-75 % Lymphocytes (%) (Auto) 24 12-44 % Monocytes (%) (Auto) 9 0-12 % Eosinophils (%) (Auto) 1 0-10 % Basophils (%) (Auto) 0 0-10 % Neutrophils # (Auto) 5.3 1.8-7.8 10^3/uL Lymphocytes # (Auto) 1.9 1.0-4.0 10^3/uL Monocytes # (Auto) 0.7 0.0-1.0 10^3/uL Eosinophils # (Auto) 0.1 0.0-0.3 10^3/uL Basophils # (Auto) 0.0 0.0-0.1 10^3/uL Immature Granulocyte # (Auto) 0.1 0.0-0.1 10^3/uL OB - Assessment/Plan/Diagnosis Assessment Assessment: section Admission Dx 26 yo @ 39 weeks Previous Admission Status: Inpatient Order (span 2 midnights) Reason for Inpatient Admission: Repeat Plan Plan: Section MARIE RAI DO May 08, 2022 07:21
--- NOTE | 2022-05-08 07:26 | Discharge Inst-Women's Service ---
Discharge Inst-Women's Serv Depart Medication/Instructions New, Converted or Re-Newed RX: Transmitted to Pharmacy Final Diagnosis POD 2 RLTCS Problems Reviewed?: Yes Consults/Follow Up Additional Follow Up: Yes Orders/Referrals Dr. Guerrier in 7-10 days in 6 weeks with [facility] Activity Activity: Activity as Tolerated Driving Instructions: No Driving for 1 Week NO SMOKING: NO SMOKING Nothing Inside Vagina: No Douching, No [place], No Tampons Diet Discharge Diet: No Restrictions Symptoms to Report to : Bleeding Excessive, Pain Increased, Fever Over 101 Degrees F, Vaginal Bleeding Increase, Questions/Concerns For Any Problems or Questions: Contact Your Physician Skin/Wound Care Infection Signs and Symptoms: Increased Redness, Foul Odor of Wound, Increased Drainage, Skin Itchy or Has a Rash, Increased Swelling, Temperature Above 101 F Operative Area Clean and Dry: Keep Incision Clean/Dry Stitches/Hornitos/Dermabond: Dermabond, Care of Stitches Bathing Instructions: MARIE Gonsalez DO May 08, 2022 07:26
[2022-05-08] MEDS ORDERED: DOCU100C37 PO (07:27)
[2022-05-08] MEDS ORDERED: ACHD5005 PO (07:27)
[2022-05-08] MEDS ORDERED: IBUP-844 PO (07:27)
[2022-05-08] MEDS ORDERED: ONDANSETRON 4 MG/2 ML (SDV) Z0FRAN IVP PRN (07:30)
[2022-05-08] MEDS ORDERED: MEASLES,MUMPS,RUBELLA 1 EA INJ SC SCH (07:30)
[2022-05-08] MEDS ORDERED: TETANUS,DIPTH,PERTUSS P/F (BOOSTRIX) 0.5 ML VIAL IM SCH (07:30)
[2022-05-08] MEDS ORDERED: NALOXONE 0.4 MG/ML 1 ML (NARCAN) VIAL IV PRN (07:30)
[2022-05-08] MEDS: KETOROLAC 30 MG/ML VIAL IV SCH ×3 (08:15→20:04)
[2022-05-08] MEDS ORDERED: PHENYLEPHRINE 100 MCG/ML 10 ML (ANESTHESIA) SYR ONE (08:19)
[2022-05-08] MEDS ORDERED: KETOROLAC 30 MG/ML VIAL ONE (08:19)
[2022-05-08] MEDS ORDERED: BUPIVACAINE 0.25% 10 ML (SENSORCAINE) VIAL ONE (08:19)
[2022-05-08] MEDS: OXYTOCIN PRE-MIX DRIP 500 ML IV SCH ×2 (08:36→13:28)
[2022-05-08] MEDS: DOCUSATE SODIUM 100 MG (COLACE) CAP PO SCH ×2 (10:20→20:04)
[2022-05-08] MEDS: HYDROcodone/APAP 5 MG/325 MG (LORTAB) TAB PO PRN ×2 (10:20→18:26)
[2022-05-08] MEDS ORDERED: CATHETER FLUSH 10 ML SYR IV SCH (14:00)
--- NOTE | 2022-05-08 17:01 | OPERATIVE REPORT ---
PREOPERATIVE DIAGNOSES: 1. A 26-year-old G5, P4 at 39 weeks' gestation. 2. Previous section. POSTOPERATIVE DIAGNOSES: 1. A 26-year-old G5, P4 at 39 weeks' gestation. 2. Previous section. PROCEDURE: Repeat low transverse section. SURGEON: Zac Guerrier DO FLUME RIDE OPERATOR: Queta Thomas NP, who was necessary for manipulation and retraction throughout the procedure. ANESTHESIA: Spinal. ESTIMATED BLOOD LOSS: 400 mL. URINE OUTPUT: 50 mL clear at the end of the procedure. FLUIDS: 2200 mL of lactated Ringer solution. FINDINGS: Live male weighing 9 pounds 2 ounces, Apgars of 9 and 9. Grossly normal appearing uterus, bilateral fallopian tubes and ovaries. SPECIMEN SENT: None. INDICATIONS FOR PROCEDURE: This 26-year-old female is a patient who had sought care at [facility]. Her care was uncomplicated with the exception of need for repeat . Risks of the procedure were discussed with the patient in a preoperative visit and in the preoperative area. After all of her questions were answered, consent was obtained. The patient was taken to the operating room. DESCRIPTION OF PROCEDURE: Once in the operating room, spinal analgesia was administered and found to be adequate. She was placed in the supine position with leftward tilt, prepped and draped in normal sterile fashion. A timeout was performed. Anesthesia was tested. I then made a Pfannenstiel skin incision through the previously existing scar using a knife and carried down to underlying fascia using Bovie cautery. The fascial incision was extended laterally using Bovie cautery. Superior aspect of the fascial incision was then grasped with Quentin clamps, tented up and dissected off the underlying rectus muscles. The inferior aspect of the fascial incision was then grasped with Quentin clamps, tented up and dissected off the underlying rectus muscles. The rectus muscles were dissected down in the midline using sharp dissection, which exposed the peritoneum, which I entered bluntly and extended using blunt traction. An Raul ring retractor was placed within the peritoneal incision, which offers excellent lateral sidewall retraction. I identified the lower uterine segment, was found to be thinned out and made a low transverse incision through the vesicouterine peritoneum bluntly dissecting the lower uterine segment away from the vesicouterine peritoneum and creating a bladder flap. I then proceeded with myotomy until membranes were visualized, at which point I extended the uterine incision laterally and superiorly using bandage scissors. Amniotomy was performed in the process of doing this, clear fluid was noted. The was found in the vertex presentation. With gentle fundal pressure, the 's head was elevated up to the incision where it was delivered through the incision. The nares and oropharynx were bulb suctioned. Anterior and posterior shoulders were delivered. The was brought to the operative field where cord was doubly clamped and cut and was handed off to waiting nurses in attendance. Cord blood was collected. Three-vessel cord intact placenta was delivered spontaneously thereafter. IV Pitocin was initiated to facilitate uterine contraction. Uterine fundus confirmed by bimanual massage. The uterus was then exteriorized and cleared of all endometrial clots and debris. I then proceeded with closing the uterine incision using 0 Vicryl suture in a running locked fashion. Second layer of imbricating 0 Monocryl was placed and excellent hemostasis was noted after doing this. I then placed the uterus back in the pelvis and copiously irrigated the pelvis using normal saline. Once again, there was no active bleeding noted from any of my dissection planes. I placed Interceed antiadhesive over my low transverse incision. I removed the Raul ring retractor and proceeded with closing the peritoneum using 3-0 Vicryl suture in a running fashion. The rectus muscles were reapproximated using 3-0 Vicryl suture in interrupted fashion. The fascia was reapproximated using 0 Vicryl suture in a running fashion. The subcutaneous tissue is very thin; therefore, I closed the skin using 4-0 Monocryl in a running subcuticular. Dermabond was applied to incision and sterile dressings with adhesive white tape. The patient tolerated the procedure well and was taken to recovery area in stable condition. Lap and sponge counts were correct at the end of the procedure. Instrument counts were correct as well. Two grams of Ancef were given preoperatively for infection prophylaxis. Job ID: [id number] DocumentID: [id number] Dictated Date: 05/08/2022 08:34:05 Internet Consultant Date: 05/08/2022 16:58:00 Dictated By: DO TAQUERIA NOYOLA
[2022-05-09] MEDS: HYDROcodone/APAP 5 MG/325 MG (LORTAB) TAB PO PRN ×4 (00:20→19:58)
[2022-05-09 00:21] VITALS: BP 123/67
[2022-05-09] MEDS: KETOROLAC 30 MG/ML VIAL IV SCH (02:40)
[2022-05-09 04:52] VITALS: BP 109/66
[2022-05-09 06:08] LABS: BASOPHILS % (AUTO) 0 % (0-10); EOSINOPHILS # (AUTO) 0.1 10^3/uL (0.0-0.3); EOSINOPHILS % (AUTO) 1 % (0-10); HEMATOCRIT 27 % (35-52); HEMOGLOBIN 8.3 g/dL (11.5-16.0); LYMPHOCYTES % (AUTO) 19 % (12-44); MEAN CORPUSCULAR HEMOGLOBIN 25 pg (25-34); MEAN CORPUSCULAR HGB CONC 31 g/dL (32-36); MEAN CORPUSCULAR VOLUME 82 fL (80-99); MEAN PLATELET VOLUME 9.5 fL (9.0-12.2); MONOCYTES % (AUTO) 9 % (0-12); NEUTROPHILS # (AUTO) 7.3 10^3/uL (1.8-7.8); NEUTROPHILS % (AUTO) 69 % (42-75); PLATELET COUNT 187 10^3/uL (130-400); WHITE BLOOD COUNT 10.5 10^3/uL (4.3-11.0)
[2022-05-09 07:30] VITALS: BP 114/68
[2022-05-09] MEDS: IBUPROFEN 600 MG (MOTRIN) TAB PO SCH ×3 (07:37→19:58)
[2022-05-09] MEDS: DOCUSATE SODIUM 100 MG (COLACE) CAP PO SCH ×2 (07:37→21:22)
[2022-05-09] MEDS: MUPIROCIN 2% OINT 22 GM (BACTROBAN) TUBE NSEACH SCH ×2 (09:20→21:22)
--- NOTE | 2022-05-09 10:05 | Anesthesia-Regional Post-Op ---
Regional Patient Condition Mental Status: Alert, Oriented x3 Circulation: Same as Pre-Op Headache: Absent Sensation: Full Recovery Motor Block: Absent Post Op Complications Complications None Follow Up Care/Instructions Patient Instructions None needed. Anesthesia/Patient Condition Patient is doing well, no complaints, stable vital signs, no apparent adverse anesthesia problems. No complications reported per nursing. D/C home [facility] Criteria: Yes MELY AVELAR CRNA May 09, 2022 10:05
[2022-05-09 13:23] VITALS: BP 111/63
[2022-05-09] MEDS ORDERED: ACETAMINOPHEN 325 MG TABLET PO SCH (16:15)
--- NOTE | 2022-05-09 16:28 | Postpartum Progress Note ---
Post Op Post-operative Day #1 Subjective: Patient is without complaints. Ambulating, voiding, tolerating a regular PO diet, and passing flatus. Had a BM this morning. She denies any nausea or vomit ing. Lochia is just spotting today. Pain is well controlled with oral pain medications. She is formula feeding. Tried breast feeding, but baby kept spitting it out. Does not want to try further breast feeding at this time. Objective: Vital Signs 05/09/22 13:23 Temp 36.8 Pulse 78 Resp 18 B/P (MAP) 111/63 (79) Pulse Ox 98 O2 Delivery Room Air Physical Exam: General - Alert and oriented, no apparent distress. Slight speech impediment Cardiac: normal heart rate and peripheral perfusion Pulm: non-labored breathing. Symmetric chest rise Abdomen - Soft, appropriately tender to palpation, non-distended. + BS Incision - clean, dry and intact; no erythema or induration, no drainage Extremities - mild equal bilat pedal edema, NTTP bilaterally Assessment: post-operative day #1, status post repeat LTCS. Recovering well, hemodynamically stable PMHx: Depression, Schizophrenia, Cerebral palsy Plan: Routine post-operative care. Patient reports she does not take any home medications for her chronic medical issues. Sees counselor s/p Social service consult: plan to discharge pt home with baby Continue to encourage breast feeding. Encourage ambulation. VTE prophylaxis: SCDs while in bed, ambulation. Ferrous sulfate supplementation. Plan for discharge likely PPD#2 or 3 Vitals - Labs Vital Signs - I&O Vital Signs Date Time Temp Pulse Resp B/P (MAP) Pulse Ox O2 Delivery O2 Flow Rate FiO2 05/09/22 13:23 36.8 78 18 111/63 (79) 98 Room Air 05/09/22 07:30 36.5 87 18 114/68 (83) 99 Room Air 05/09/22 04:52 36.6 81 18 109/66 (80) 99 Room Air 05/09/22 00:21 37.0 75 18 123/67 (85) 98 Room Air 05/08/22 20:06 37.0 96 18 111/92 (98) 97 Room Air 05/08/22 18:21 37.4 77 18 112/69 (83) 98 Room Air I & O 05/09/22 07:00 Intake Total 2500 ml Output Total 50 ml Balance 2450 ml Labs Laboratory Tests 05/09/22 05:43: White Blood Count 10.5, Red Blood Count 3.28L, Hemoglobin 8.3L, Hematocrit 27L, Mean Corpuscular Volume 82, Mean Corpuscular Hemoglobin 25, Mean Corpuscular Hemoglobin Concent 31L, Red Cell Distribution Width 15.3H, Platelet Count 187, Mean Platelet Volume 9.5, Immature Granulocyte % (Auto) 1, Neutrophils (%) (Auto) 69, Lymphocytes (%) (Auto) 19, Monocytes (%) (Auto) 9, Eosinophils (%) (Auto) 1, Basophils (%) (Auto) 0, Neutrophils # (Auto) 7.3, Lymphocytes # (Auto) 2.0, Monocytes # (Auto) 1.0, Eosinophils # (Auto) 0.1, Basophils # (Auto) 0.0, Immature Granulocyte # (Auto) 0.1 Microbiology 05/08/22 MRSA Screen - Final, Complete LONDON CORONADO MD May 09, 2022 16:28
[2022-05-09 19:59] VITALS: BP 112/59
[2022-05-10 02:00] VITALS: BP 125/82
[2022-05-10] MEDS: IBUPROFEN 600 MG (MOTRIN) TAB PO SCH ×3 (02:00→13:51)
[2022-05-10] MEDS: HYDROcodone/APAP 5 MG/325 MG (LORTAB) TAB PO PRN ×3 (02:00→13:52)
[2022-05-10] MEDS: DOCUSATE SODIUM 100 MG (COLACE) CAP PO SCH (07:44)
[2022-05-10] MEDS: MUPIROCIN 2% OINT 22 GM (BACTROBAN) TUBE NSEACH SCH (07:44)
[2022-05-10 07:48] VITALS: BP 113/73
[2022-05-10] MEDS ORDERED: FERROUS SULF 325 MG (IRON) TAB PO SCH (09:00)
--- NOTE | 2022-05-10 12:33 | Short Stay Summary ---
Discharge Summary Hospital Course Was the Problem List Reviewed?: Yes Problems/Dx: (1) Delivery by section using transverse incision of lower segment of uterus Status: Acute (2) Previous section Status: Chronic (3) History of cerebral palsy Status: Chronic (4) History of schizophrenia Status: Chronic (5) History of herpes genitalis Status: Chronic (6) History of depression Status: Chronic Final Diagnosis: s/p delivery by repeat low transverse Hospital Course Date of Admission: May 08, 2022 at 05:29 Admission Diagnosis : Family Physician: Erma Sanders MD Date of Discharge: 05/08/22 Discharge Diagnosis: 05/10/2022 Hospital Course: Ms. Alla Alfonso is a 26 yo, now , who is now POD#2 s/p delivery via scheduled repeat delivery at 39 weeks gestational age. Patient presented at 39 weeks gestational age for scheduled repeat delivery. Patient's care was at the [facility], and her was complicated by history of Cerebral Palsy, Schzophrenia, Depression, and Hx of Genital Herpes. On presentation, vitals signs were stable, physical exam was benign, and heart tracing was reassuring. Patient underwent a repeat low transverse on 05/08/2022, and delivered a living male without complications. Surgical EBL was 400 ml. Infant had Apgars of 9 at 1 minute and 9 at 5 minutes, weighing 9 pounds and 2 ounces. Please see operative notes for full details. Patient's course was uncomplicated. director pharmacy services was consulted for discharge planning. On PPD#1, she had a Hgb 8.3g/dL, and was asymptomatic of her anemia. She was making good post-op progress without any acute concerns. By PPD #2, she was meeting all goals; ambulating without difficulty, voiding with good urine output, passing flatus, tolerating a regular PO diet, minimal to moderate lochia, and pain was controlled. Incision was clean, dry, intact without erythema, induration, or drainage on the day of discharge. Patient plans on getting tubal sterilization procedure for contraception. Patient was discharged to home on POD #2 in stable medical condition Labs and Pending Lab Test: Vital Signs 05/10/22 07:48 Temp 36.5 Pulse 77 Resp 18 B/P (MAP) 113/73 (86) Pulse Ox 100 O2 Delivery Room Air Microbiology 05/08/22 MRSA Screen - Final, Complete Home Meds Active Docusate Sodium 100 Mg Capsule 100 Mg PO BID PRN HYDROcodone/APAP 5 MG/325 MG TAB (Acetaminophen/Hydrocodone Bitart) 1 Tab Tab 1-2 Ea PO Q6HR PRN Ibu (Ibuprofen) 600 Mg Tablet 600 Mg PO Q6H Reported Formula ( Vit W-Ca,Fe,FA(<1 mg)) 28 Mg Iron-800 Mcg Tablet 1 Each PO DAILY Assessment/Pt Instructions POD#2 s/p repeat low transverse . Patient is meeting post-op discharge goals - Discharge home in stable medical conditions - No lifting greater than 5 to 8 pounds for the next 6 weeks - Nothing in the vagina for 6 to 8 weeks. No intercourse, tampons. - No soaking in hot tubs, bath tubs, pools for the next 6 weeks - Follow-up at the [facility] in 1 week for surgical wound check and discussion on tubal ligation - Return for temperature .4 degrees, vaginal bleeding greater than 2 maxi pads in 1 hour over 4 hours, abdominal pain, intractable nausea or vomiting, headaches that don't go away with treatment, spots in your vision, chest pain/shortness of breath or other concerns. - Keep all follow up appointments. Discharge Instructions Discharge Diet: No Restrictions, Regular Diet Activity as Tolerated: Yes Consultations Director Economic Anesthesiology Discharge Physical Examination General Appearance: Alert, Oriented X3, Cooperative, No Acute Distress HEENT: Atraumatic, EOMI Respiratory: Clear to Auscultation Cardiovascular: Regular Rate Abdominal: Normal Bowel Sounds, Soft, No Tenderness, No Masses Extremities: No Cyanosis, No Edema, No Tenderness/Swelling Skin: No Rashes, No Breakdown Neuro: Normal Gait Psych/Mental Status: Mental Status NL, Mood NL Allergies: Coded Allergies: No Known Drug Allergies (Unverified , 04/30/22) Discharge Summary Date of Admission May 08, 2022 at 05:29 Date of Discharge Discharge Date: May 10, 2022 LONDON CORONADO MD May 10, 2022 12:33
[2022-05-10] MEDS ORDERED: FERR325T24 PO (13:25)
[2022-05-10 13:55] VITALS: BP 118/76
[2022-05-10 14:00] VITALS: BP 118/76
== END 2022-05-10 14:00 | disposition home or self-care (01) | DRG 787 ==
LOC: LDRP 05:29
PROVIDERS: ADMIT Obstetrics & Gynecology; ATTEND Obstetrics & Gynecology
PROC: 10D00Z1 Extraction of Products of Conception, Low, Open Approach (ICD-10-PCS; principal; 2022-05-08 07:22)
DX: O34.211 Maternal care for low transverse scar from previous cesarean delivery (principal); O98.32 Other infections with a predominantly sexual mode of transmission complicating childbirth; O99.354 Diseases of the nervous system complicating childbirth; Z3A.39 39 weeks gestation of pregnancy; Z37.0 Single live birth; G80.9 Cerebral palsy, unspecified; O99.344 Other mental disorders complicating childbirth; F20.9 Schizophrenia, unspecified; F32.A Depression, unspecified; A60.09 Herpesviral infection of other urogenital tract; Z28.310 Unvaccinated for COVID-19; O90.81 Anemia of the puerperium
CPT/HCPCS: 36415; 85025; 86850; 86900; 86901; 87081; 94640